=== PATIENT | male | born 1935 | race Caucasian/White ===

== ENCOUNTER 2016-09-26 16:44 | Inpatient (IN) | payer OTHER ==
--- NOTE | 2016-09-26 17:02 | EDPHY ---
H & P Time Seen by Provider: 09/26/16 16:57 HPI/ROS: CHIEF COMPLAINT: Shortness of breath HISTORY OF PRESENT ILLNESS: 81-year-old male with a history of lung cancer, status post partial right lung resection, atrial fibrillation and severe pulmonary hypertension, on 15 L of oxygen at home presents with gradually increasing shortness of breath. 4 days ago he began feeling more short of breath than usual. His Bumex was increased from 1 to 3 mg daily over the past 3 days. Levaquin was started yesterday for possible pneumonia. He is usually on 15 L of oxygen by nasal cannula and his usual oxygen saturation is 91%. He also reports recent 10lb weight gain over the past week which he attributes to pedal edema. He was seen in the clinic this afternoon and sent to the ED for chest x-ray and IV Lasix. REVIEW OF SYSTEMS: Constitutional: +rapid weight gain, no fever, no chills Eyes: No visual changes ENT: No sore throat Respiratory: +shortness of breath, no cough Cardiac: No chest pain Gastrointestinal: No nausea, no vomiting, no abdominal pain Genitourinary: No hematuria, no dysuria Musculoskeletal: +bilateral leg swelling, no leg pain Skin: No rash Neurological: No headache Psychiatric: No depression Past Medical/Surgical History: Interstitial lung disease, severe pulmonary hypertension, pulmonary fibrosis, lung cancer status post-right upper lobe resection, atrial fibrillation, gout, hypertension, hyperlipidemia, CAD with stenting. Social History: at bedside. Smoking Status: Former smoker Physical Exam: General Appearance: Alert, speaks in full sentences, mildly tachypneic Eyes: Pupils equal and round, no conjunctival pallor or injection ENT, Mouth: Mucous membranes moist Neck: Normal inspection Respiratory: Rales at the left base Cardiovascular: Regular rate and rhythm, 2/6 systolic murmur Gastrointestinal: Abdomen is soft and non- tender Neurological: A&O, nonfocal, normal gait Skin: Warm and dry, no rash Extremities: Nontender, 1+ pedal edema Psychiatric: Mood and affect normal Constitutional: Initial Vital Signs Temperature (C) 36.6 C 09/26/16 16:53 Heart Rate 58 L 09/26/16 16:53 Respiratory Rate 18 09/26/16 16:53 Blood Pressure 108/55 L 09/26/16 16:53 O2 Sat (%) 93 09/26/16 16:53 O2 Delivery Mode Non-Rebreather Mask O2 (L/minute) 15 Allergies/Adverse Reactions: amiodarone Allergy (Verified 09/26/16 16:50) MARINARA SAUCE Allergy (Mild, Uncoded 12/09/15 13:40) Vomiting Home Medications: Medication Instructions Recorded Allopurinol [Allopurinol 300 MG 300 mg PO DAILY 02/23/12 (RX)] Sildenafil Citrate [Revatio 20 MG 20 mg PO TID 03/20/13 (*)] Atorvastatin Calcium [Lipitor 20 20 mg PO HS 12/15/14 mg (*)] Omeprazole [Prilosec] 40 mg PO DAILY@1800 12/15/14 Ascorbic Acid [Vitamin C 500 mg 500 mg PO BID 10/01/15 (*)] Bumetanide [Bumex (*)] 2 mg PO DAILY #30 tab 10/07/15 Spironolactone [Aldactone 25 MG 25 mg PO DAILY #30 tab 10/07/15 (*)] Iron/Vit C/Docusate [Allison-Sequels 2 each PO DAILY@1800 12/09/15 65 mg (*)] Metolazone [Zaroxolyn] 2.5 mg PO DAILY 12/09/15 Digoxin 09/26/16 Medical Decision Making - Diagnostics EKG Interpretation: EKG interpreted by me reveals: atrial fibrillation, rate 99; ventricular bigeminy; right axis deviation; nonspecific repol abnormality, diffuse leads. Imaging: Study: X-ray of the chest Indication: Shortness of breath, history of lung cancer and pulmonary fibrosis Results: X-ray of the chest was obtained. The results of the study are: Chronic severe cardiomegaly. Difficult to exclude underlyin ground-glass infiltrate or patchy pulmonary edema. The study was read by the radiologist, Dr. Salvador Segura. I viewed the images myself on the PACS system. ED Course/Re-evaluation: Patient presents with acute worsening of his chronic dyspnea likely secondary to pulmonary edema. Plan for EKG, labs, respiratory therapy, and subsequent admission. The patient is agreeable to this plan. Stat EKG reveals ventricular bigeminy and atrial fibrillation, without evidence of ischemia. Chest x-ray is consistent with pulmonary edema. Lasix 40 mg IV given. 1716: Respiratory therapy at bedside. Labs obtained and are significant for elevated Troponin at 0.051 [place] [address], consistent with pulmonary edema and possible acute coronary syndrome. Patient is clinically stable. The hospitalist service was consulted for admission. Differential Diagnosis: Differential diagnosis includes though it is not limited to pneumonia, pneumothorax, pulmonary embolism, aortic dissection, pericarditis, acute coronary syndrome. - Data Points Laboratory Results: Laboratory Results 09/26/16 17:14 09/26/16 17:14 09/26/16 09/26/16 09/26/16 18:35 18:00 17:14 WBC RBC Hgb Hct MCV MCH MCHC RDW Plt Count MPV Neut % (Auto) Lymph % (Auto) [place] % (Auto) Eos % (Auto) Baso % (Auto) Nucleat RBC Rel Count Absolute Neuts (auto) Absolute Lymphs (auto) Absolute Monos (auto) Absolute Eos (auto) Absolute Basos (auto) Absolute Nucleated RBC Immature Gran % Immature Gran # D-Dimer 1.22 ug/mLFEU H ug/mLFEU REJ (0.00-0.50) Sodium 136 mEq/L mEq/L (134-144) Potassium 4.9 mEq/L mEq/L (3.5-5.2) Chloride 90 mEq/L L mEq/L (97-110) Carbon Dioxide 31 mEq/l mEq/l (22-31) Anion Gap 15 mEq/L mEq/L (8-16) BUN 40 mg/dL H mg/dL (7-23) Creatinine 1.1 mg/dL mg/dL (0.7-1.3) Estimated GFR > 60 Glucose 118 mg/dL H mg/dL (70-100) Calcium 10.3 mg/dL mg/dL (8.5-10.4) Troponin I 0.051 ng/mL H ng/mL (0-0.034) NT-Pro-B Natriuret Pep 23441 pg/mL H pg/mL (0-450) 09/26/16 09/26/16 17:14 17:14 WBC 10.49 10^3/uL H 10^3/uL (3.80-9.50) RBC 4.45 10^6/uL 10^6/uL (4.40-6.38) Hgb 14.9 g/dL g/dL (13.7-17.5) Hct 44.8 % % (40.0-51.0) MCV 100.7 fL H fL (81.5-99.8) MCH 33.5 pg pg (27.9-34.1) MCHC 33.3 g/dL g/dL (32.4-36.7) RDW 19.2 % H % (11.5-15.2) Plt Count 152 10^3/uL 10^3/uL (150-400) MPV 12.1 fL H fL (8.7-11.7) Neut % (Auto) 84.0 % H % (39.3-74.2) Lymph % (Auto) 5.5 % L % (15.0-45.0) [place] % (Auto) 8.4 % % (4.5-13.0) Eos % (Auto) 1.0 % % (0.6-7.6) Baso % (Auto) 0.7 % % (0.3-1.7) Nucleat RBC Rel Count 0.6 % H % (0.0-0.2) Absolute Neuts (auto) 8.82 10^3/uL H 10^3/uL (1.70-6.50) Absolute Lymphs (auto) 0.58 10^3/uL L 10^3/uL (1.00-3.00) Absolute Monos (auto) 0.88 10^3/uL H 10^3/uL (0.30-0.80) Absolute Eos (auto) 0.10 10^3/uL 10^3/uL (0.03-0.40) Absolute Basos (auto) 0.07 10^3/uL 10^3/uL (0.02-0.10) Absolute Nucleated RBC 0.06 10^3/uL H 10^3/uL (0-0.01) Immature Gran % 0.4 % % (0.0-1.1) Immature Gran # 0.04 10^3/uL 10^3/uL (0.00-0.10) D-Dimer REJ Sodium Potassium Chloride Carbon Dioxide Anion Gap BUN Creatinine Estimated GFR Glucose Calcium Troponin I NT-Pro-B Natriuret Pep Medications Given: Discontinued Medications Furosemide (Lasix Injection) 40 mg IVP EDNOW ONE Stop: 02/14/17 17:06 Last Admin: 09/26/16 18:06 Dose: 40 mg Departure - Departure Disposition: [facility] Acute Clinical Impression: Acute exacerbation of congestive heart failure Qualifiers: Congestive heart failure type: systolic Qualified Code(s): I50.23 - Acute on chronic systolic (congestive) heart failure Condition: Fair Report Scribed for: Mary Kirkland Report Scribed by: An Cain Date of Report: 09/26/16 Time of Report: 17:08 Physician Review and Approval Statement: 09/26/16 17:08 Portions of this note were transcribed by a medical social worker. I personally performed a history, physical exam, medical decision making, and confirmed accuracy of information the transcribed note.
[2016-09-26] MEDS ORDERED: FUROSEMIDE 40 MG/4 ML VIAL IVP ONE (17:05)
--- NOTE | 2016-09-26 17:13 | CPEKG ---
Heart Rate: 99 RR Interval: 606 QRSD Interval: 94 QT Interval: 320 QTC Interval: 411 QRS Golf: 113 T Wave Golf: 260 EKG Severity - ABNORMAL ECG - EKG Impression: ATRIAL FIBRILLATION EKG Impression: VENTRICULAR BIGEMINY EKG Impression: RIGHT AXIS DEVIATION EKG Impression: NONSPECIFIC REPOL ABNORMALITY, DIFFUSE LEADS Electronically Signed By: Mary Kirkland 26-Sep-2016 19:43:29
[2016-09-26 17:29] LABS: % IMMATURE GRANULYOCYTES 0.4 % (0.0-1.1); ABSOLUTE IMMATURE GRANULOCYTES 0.04 10^3/uL (0.00-0.10); ABSOLUTE NRBC COUNT 0.06 10^3/uL (0-0.01); ADD DIFF? NO; ADD MORPH? NO; ADD SCAN? NO; ATYPICAL LYMPHOCYTE FLAG 0 (0-99); FRAGMENT RBC FLAG 40 (0-99); HEMATOCRIT 44.8 % (40.0-51.0); HEMOGLOBIN 14.9 g/dL (13.7-17.5); LEFT SHIFT FLG 0 (0-99); LIPEMIA HEMOLYSIS FLAG 80 (0-99); MEAN CELL HEMOGLOBIN 33.5 pg (27.9-34.1); MEAN CELL HEMOGLOBIN CONCENTR. 33.3 g/dL (32.4-36.7); MEAN CELL VOLUME 100.7 fL (81.5-99.8); MEAN PLATELET VOLUME 12.1 fL (8.7-11.7); NRBC-AUTO% 0.6 % (0.0-0.2); PLATELET CLUMPS FLAG 10 (0-99); PLATELET COUNT 152 10^3/uL (150-400); RED BLOOD CELL COUNT 4.45 10^6/uL (4.40-6.38); RED CELL DISTRIBUTION WIDTH 19.2 % (11.5-15.2)
[2016-09-26 17:48] LABS: ANION GAP 15 mEq/L (8-16); CALCIUM 10.3 mg/dL (8.5-10.4); CARBON DIOXIDE 31 mEq/l (22-31); CHLORIDE 90 mEq/L (97-110); CREATININE 1.1 mg/dL (0.7-1.3); GLOMERULAR FILTRATION RATE > 60; GLUCOSE 118 mg/dL (70-100); POTASSIUM 4.9 mEq/L (3.5-5.2); SODIUM 136 mEq/L (134-144)
[2016-09-26 18:00] LABS: TROPONIN I 0.051 ng/mL (0-0.034)
[2016-09-26] MEDS ORDERED: ACETAMINOPHEN 325 MG TAB PO PRN (19:43)
[2016-09-26] MEDS ORDERED: ONDANSETRON DISINTEGRATING 4 MG TAB PO PRN (19:43)
[2016-09-26] MEDS ORDERED: ONDANSETRON 4 MG/2 ML VIAL IVP PRN (19:43)
[2016-09-26] MEDS ORDERED: IOPAMIDOL (ISOVUE 370) 100 ML BTL IV ONE (20:55)
--- NOTE | 2016-09-26 21:26 | GHP ---
[f rep st] HISTORY AND PHYSICAL DATE OF ADMISSION: 09/26/2016 CHIEF COMPLAINT: Shortness of breath. HISTORY OF PRESENT ILLNESS: The patient is a 81-year-old male with a complex medical history including chronic hypoxemic respiratory failure, secondary to end-stage right-sided heart failure, severe pulmonary hypertension, pulmonary fibrosis and a history of lung cancer status post left upper lobe resection, who presents to the emergency department with worsening shortness of breath. He uses home oxygen at baseline of 15-17 L per minute. At times he increases this up to 25 L per minute. He has a high-flow nasal cannula he uses at home. Over the past several days, he has been having increasing dyspnea and his weight has increased from his baseline weight of 137 pounds up to 148 pounds. He endorses mild peripheral edema. He saw his primary care physician, who increased his Bumex from 1 mg daily to 3 mg daily. However, he continues to notice weight gain and worsening shortness of breath including orthopnea and paroxysmal nocturnal dyspnea. He has a mild cough which is not productive. He denies fevers or chills. He denies chest pain. He denies headache, vision changes, abdominal pain, nausea, vomiting or diarrhea. In the emergency department workup revealed an elevated BNP of 23,000. Chest x- ray is suggestive of volume overload with severe cardiomegaly. He was given 40 mg of IV Lasix and is admitted to the hospital for further management. PAST MEDICAL HISTORY: 1. Chronic hypoxemic respiratory failure. 2. Severe pulmonary hypertension. The last echo in [facility] reveals right ventricular systolic pressure of 100. 3. Pulmonary fibrosis, on 15 L of oxygen at baseline. 4. Lung cancer status post right upper lobe resection. 5. Atrial fibrillation. 6. Gout. 7. Hypertension. 8. Hyperlipidemia. 9. Coronary artery disease with prior stent. He had a clean cath in 2010. 10. Obstructive sleep apnea. 11. Chronic hyponatremia. 12. Gastroesophageal reflux disease. 13. History of empyema in the setting of PleurX catheter. SURGICAL HISTORY: He has had right knee surgery. MEDICATIONS: Please see [facility] for complete and updated patient medication list. ALLERGIES: Amiodarone and Marinara sauce. SOCIAL HISTORY: The patient is a former smoker. He quit in 1999. He used to smoke up to 2 packs per day. He denies alcohol or drug use. He lives independently with his who is here at the bedside. FAMILY HISTORY: Both parents are . REVIEW OF SYSTEMS: A 10-point review of systems was performed and is negative except as per HPI. PHYSICAL EXAMINATION: VITAL SIGN: On arrival temperature 36.6, blood pressure 108/55, heart rate 58, respiratory rate 18, he is 93% on 15 L of oxygen by non- rebreather mask. GENERAL: The patient is awake, alert, oriented, no acute distress. HEENT: Head is atraumatic, normocephalic. Pupils equal, round, react to light. Extraocular muscles intact. Oropharynx is clear. Mucous members are moist. NECK: Supple. He has 8 to 10 cm of JVD. HEART: Irregularly irregular without obvious murmur detected. ABDOMEN: Soft, nondistended, nontender. Normoactive bowel sounds. EXTREMITIES: 1+ bilateral lower extremity edema. Extremities otherwise warm and well-perfused. NEUROLOGIC: Grossly nonfocal. EKG in the emergency department reveals atrial fibrillation with ventricular bigeminy. Chest x-ray shows chronic severe cardiomegaly with haziness in the bilateral lung broussard, most likely suggestive of patchy pulmonary edema. There is no focal infiltrate or consolidation. ASSESSMENT AND PLAN: This is a 81-year-old male with a history of severe pulmonary hypertension secondary to pulmonary fibrosis and subsequent chronic hypoxemic respiratory failure, who is admitted to the hospital with acute heart failure exacerbation. 1. Acute on chronic hypoxemic respiratory failure due to acute right heart failure. He also has severe pulmonary hypertension, pulmonary fibrosis and a history of lung cancer status post lobectomy, all contributing to his severe hypoxemia. He has no fevers and appears nontoxic thus I do not suspect an infectious etiology for his acute shortness of breath. He was started on Levaquin yesterday, will hold this for now and monitor. D dimer was elevated, CTPA neg for PE. His weight is up 11 pounds from his baseline weight of 137 pounds and BNP quite elevated. He is given 40 mg of IV Lasix in the ED and will continue with aggressive diuresis, follow his daily weights, I's and O's. I will recheck an echocardiogram as I do not see a recent echo performed. Cardiology is consulted and will see the patient in the morning. His baseline oxygen requirement is 15 L per minute and he frequently requires up to 25 L per minute. We will place him on high-flow nasal cannula and continue supplemental oxygen as needed. 2. Elevated troponin: Mild. We will plan to trend his troponins and repeat an EKG in the morning. I suspect this is strain in the setting of acute heart failure. He is chest pain-free. 3. Severe pulmonary hypertension secondary to pulmonary fibrosis. He is followed by Dr. Martin Steward, [facility] and has also been followed at the [facility]. We will continue his sildenafil and consider pulmonary consult tomorrow. Diuresis as above. 4. History of lung cancer status-post right upper lobe lobectomy. 5. Atrial fibrillation. He is currently rate controlled. He is not anticoagulated for unclear reasons, though he is on a daily aspirin which we will continue. 6. Deep vein thrombosis prophylaxis. Lovenox. 7. Code status. I did discuss code status with the patient. He does not want chest compressions, but would be open to intubation if necessary for a limited period of time. 8. Disposition: Patient admitted to the hospital as inpatient as he will likely require greater than 48 hours hospitalization for ongoing management of his acute hypoxic respiratory failure. /[id number]/MODL MTDD
[2016-09-26] MEDS: FUROSEMIDE 40 MG/4 ML VIAL IVP SCH (23:51)
[2016-09-26] MEDS: ATORVASTATIN CALCIUM 20 MG TAB PO SCH (23:51)
[2016-09-26] MEDS: ASPIRIN 81 MG CHEWABLE TAB PO SCH (23:51)
[2016-09-27] MEDS: SILDENAFIL CITRATE 20 MG TAB PO SCH ×4 (00:01→21:18)
[2016-09-27 05:10] LABS: % IMMATURE GRANULYOCYTES 0.5 % (0.0-1.1); ABSOLUTE IMMATURE GRANULOCYTES 0.04 10^3/uL (0.00-0.10); ABSOLUTE NRBC COUNT 0.04 10^3/uL (0-0.01); ADD DIFF? NO; ADD MORPH? NO; ADD SCAN? NO; ATYPICAL LYMPHOCYTE FLAG 10 (0-99); FRAGMENT RBC FLAG 20 (0-99); HEMATOCRIT 36.6 % (40.0-51.0); HEMOGLOBIN 12.4 g/dL (13.7-17.5); LEFT SHIFT FLG 0 (0-99); LIPEMIA HEMOLYSIS FLAG 90 (0-99); MEAN CELL HEMOGLOBIN 34.4 pg (27.9-34.1); MEAN CELL HEMOGLOBIN CONCENTR. 33.9 g/dL (32.4-36.7); MEAN CELL VOLUME 101.7 fL (81.5-99.8); MEAN PLATELET VOLUME 11.5 fL (8.7-11.7); NRBC-AUTO% 0.5 % (0.0-0.2); PLATELET CLUMPS FLAG 0 (0-99); PLATELET COUNT 110 10^3/uL (150-400); RED CELL DISTRIBUTION WIDTH 18.9 % (11.5-15.2)
[2016-09-27 05:23] LABS: ANION GAP 9 mEq/L (8-16); CALCIUM 9.7 mg/dL (8.5-10.4); CARBON DIOXIDE 29 mEq/l (22-31); CHLORIDE 92 mEq/L (97-110); GLOMERULAR FILTRATION RATE > 60; GLUCOSE 103 mg/dL (70-100); POTASSIUM 4.5 mEq/L (3.5-5.2); SODIUM 130 mEq/L (134-144)
[2016-09-27 05:27] LABS: TROPONIN I 0.059 ng/mL (0-0.034)
[2016-09-27] MEDS: FUROSEMIDE 40 MG/4 ML VIAL IVP SCH ×3 (09:21→21:18)
[2016-09-27] MEDS: DIGOXIN 125 MCG TAB PO SCH (09:22)
[2016-09-27] MEDS: SPIRONOLACTONE 25 MG TAB PO SCH (09:23)
[2016-09-27] MEDS: ENOXAPARIN 40 MG/0.4 ML SYR SC SCH (09:23)
[2016-09-27] MEDS: ALLOPURINOL 300 MG TAB PO SCH (09:23)
--- NOTE | 2016-09-27 09:36 | CPEKG ---
Heart Rate: 96 RR Interval: 625 QRSD Interval: 86 QT Interval: 360 QTC Interval: 455 QRS [place]: 116 T Wave [place]: -71 EKG Severity - ABNORMAL ECG - EKG Impression: ATRIAL FIBRILLATION EKG Impression: VENTRICULAR BIGEMINY EKG Impression: RIGHT AXIS DEVIATION Electronically Signed By: Saad Card 27-Sep-2016 12:17:29
[2016-09-27] MEDS: ASPIRIN 81 MG CHEWABLE TAB PO SCH ×2 (09:41→20:42)
[2016-09-27] MEDS: PANTOPRAZOLE SODIUM 40 MG TAB PO SCH (11:21)
[2016-09-27] MEDS ORDERED: NON-FORMULARY NEW DRUG (Omeprazole [Prilosec] 40 MG) PO SCH (12:00)
--- NOTE | 2016-09-27 13:13 | ECHO ---
[id number] + + [address] : : [place] [address] : : [phone] + Adult Echocardiographic Report + ------+ :Name: TRACIE BRICE Padminiwu Date: 09/27/2016 07:41 AM : : Hospital Admission Number: [id number] Locatio n: 211: :: 1935 Gender: Male Height: 68 in : :Age: 81 yrs Race: WH,White Weight: 146 lb : :Reason For Study: Right heart failure : : BSA: 1.8 meters 2 : + ------+ MMode/2D Measurements \T\ Calculations IVSd: 1.6 cm LVIDd: 4.0 cm FS: 44.3 % MV Diam: 3.3 cm LVPWd: 0.93 cm LVIDs: 2.2 cm EDV(Teich): 70.6 ml ESV(Teich): 16.8 ml EF(Teich): 76.1 % Ao root diam: 3.5 cm LVOT diam: 1.9 cm LA dimension: 5.0 cm LVOT area: 2.9 cm2 Normal Measurement Values: + + :LVIDd (3.5-5.7cm) IVSd (0.6-1.1cm) LVPWd (0.6-1.1cm) Aortic Root (2.0-3.7cm)Left Atrium (1.5-4.0cm): :LV Vol(d) (76-115ml) LV Vol(s) (29-48ml) Ejec Fraction (50-65%)PV Albino (0.6- 1.2m/s) TV Albino (0.4-1.0m/s) : :MV E Albino (0.8-1.0m/s)MV A Albino (0.3-1.0m/s)LVOT Albino (0.7-1.2m/s) Asc Ao Albino ( 0.9-1.8m/s) : + + Doppler Measurements \T\ Calculations MV V2 max: Ao mean PG: LV V1 mean PG: MR max albino: 101.3 cm/sec 6.4 mmHg 0.52 mmHg 497.2 cm/sec MV max P.1 mmHg Ao V2 mean: LV V1 mean: MR max PG: MV V2 mean: 117.7 cm/sec 33.1 cm/sec 98.9 mmHg 47.2 cm/sec Ao V2 VTI: 27.4 cm LV V1 VTI: 8.6 cm MV mean P.2 mmHg MV V2 VTI: 16.8 cm JONNIE(I,D): 0.90 cm2 MV area (1 diam): 8.6 cm2 MVA(VTI): 1.5 cm2 MV Flow area(1diam): 8.6 cm2 MR(RF 1 diam): SV(MV 1 diam): TR max albino: RF(MV,Ao)(1 diam): 10.2 % 144.4 ml 523.4 cm/sec -0.84 SI(MV 1 diam): TR max PG: RF(MV,LVOT) 109.6 mmHg (1diam): 0.83 80.7 ml/m2 RAP systole: SV(LVOT): 24.7 ml 20.0 mmHg RVSP(TR): 129.6 mmHg Left Ventricle The left ventricle is smallin size. Ejection Fraction = 60%. Flattened septum is consistent with RV pressure/volume overload. Right Ventricle The right ventricle is severely dilated. Atria The left atrial size is normal. The right atrium is severely dilated. Mitral Valve There is mild mitral annular calcification. There is moderate mitral regurgitation. Tricuspid Valve Normal tricuspid valve. There is torrential tricuspid regurgitation. RVSP is 131 mmHG (with abnormal rhythm). There is Doppler evidence for severe pulmonary hypertension. Aortic Valve The aortic valve is trileaflet. There is partial fusion of the R and L cusps. There is no aortic stenosis. Mild aortic regurgitation. Pulmonic Valve The pulmonic valve is normal in structure and function. Mild pulmonic valvular regurgitation. Great Vessels The aortic root is normal size. Pericardium/Pleural There is no pericardial effusion. There is a fat pad seen. Conclusion A complete two-dimensional transthoracic echocardiogram was performed (2D, M-mode, Doppler and color flow Doppler). 1. The left ventricle is smallin size. The Ejection Fraction = 60%. Flattened septum is consistent with RV pressure/volume overload. 2. The right ventricle is severely dilated. There is Doppler evidence for severe pulmonary hypertension. RVSP is 131 mmHG (with abnormal rhythm). 3. The right atrium is severely dilated. 4. There is mild mitral annular calcification. There is moderate mitral regurgitation. 5. The aortic valve is trileaflet. There is partial fusion of the R and L cusps. There is no significant aortic stenosis by doppler. There is mild aortic regurgitation. 6. When compared to the 12/09/15 study. The pulmonary artery pressure has increased from 100 mmHg to 131 mmHg. Final Reading Physician: Shorty Leblanc MD electronically signed on 09/27/2016 01:11 PM Performed By: Yenifer Wagner RDCS
--- NOTE | 2016-09-27 17:35 | HOSPPROG ---
Hospitalist Progress Note Assessment/Plan: DIAGNOSIS: # Acute hypoxemic respiratory failure # Severe end-stage right heart failure with pulmonary pressure is 130 # Severe fibrotic lung disease chronic I have discussed the patient's case in great detail with doctors Martin Steward and Shorty Leblanc both of whom know him very well. At this point it appears that worsening pulmonary pressures and right heart failure are the main issue although he has surprisingly little edema with this. His pulmonary pressures are actually higher than his systolic arterial pressure at this point. The patient probably has decreased cardiac output based on this leading to his symptoms and presentation. There really is likely little that can be offered. He is already on Viagra and there are not likely be other medicines that we can directed is pulmonary hypertension. He is old enough that he is beyond the category of candidacy for heart lung transplant which would be the most effective therapy for him. He does not have enough fluid that will likely make much progress with diuresis. His pleural effusion at this point is a small loculated area and not likely at this point to be amenable to drainage in a way that would help him with his symptoms. Dr. Steward will see the patient and offer any recommendations he can come up with. PLANS: - Continue current therapy with high-flow oxygen, diuretics, and pulmonary therapies and Viagra -Doctors Bin and Benji will visit the patient and await their recommendations SUBJECTIVE: no improvement in shortness of breath or oxygen needs so far OBJECTIVE Vitals reviewed: respirations 18 per minute, no tachycardia, using oxygen at 25 liters/minute by high-flow mechanism Exam: alert oriented skin warm dry color ok resps not labored lungs clear BSs heart regular abd soft nondistended nontender, bowel sounds present limbs warm, no edema iv site ok Echocardiogram done today along its other abnormalities primarily shows pulmonary pressures elevated at 130 I have reviewed the patient's chest x-ray and CT from yesterday which show his chronic fibrotic lung disease, a persisting pocket of right pleural effusion that is loculated against the mediastinum but no other effusion, no acute infiltrates. Objective: Vital Signs Temp Pulse Resp BP Pulse Ox 36.7 C 87 18 115/48 L 90 L 09/27/16 15:57 09/27/16 15:57 09/27/16 15:57 09/27/16 15:57 09/27/16 15:57 Laboratory Results 09/27/16 04:25 09/27/16 04:25 09/26/16 09/27/16 09/28/16 06:59 06:59 06:59 Intake Total 200 240 Output Total 375 675 Balance -175 -435 ICD10 Worksheet Patient Problems: Problems Problem Status Onset Acute exacerbation of congestive heart failure Acute Congestive cardiomyopathy Active Atrial fibrillation Acute Chronic Disease Mgmt/Transitional Care Acute Congestive heart failure Acute Fluid overload Acute Hyponatremia Acute Hypoxia Acute MRSA (methicillin resistant staph aureus) culture positive Acute 10/02/15 Pulmonary HTN Acute Renal insufficiency Acute Respiratory distress, acute Acute
[2016-09-27] MEDS: FERRO-SEQUELS 65 MG TAB.ER PO SCH (17:46)
[2016-09-27] MEDS: ATORVASTATIN CALCIUM 20 MG TAB PO SCH (20:40)
[2016-09-28] MEDS: ENOXAPARIN 40 MG/0.4 ML SYR SC SCH (09:19)
[2016-09-28] MEDS: FUROSEMIDE 40 MG/4 ML VIAL IVP SCH ×2 (09:20→16:14)
[2016-09-28] MEDS: ALLOPURINOL 300 MG TAB PO SCH (09:21)
[2016-09-28] MEDS: SILDENAFIL CITRATE 20 MG TAB PO SCH ×3 (09:21→21:30)
[2016-09-28] MEDS: SPIRONOLACTONE 25 MG TAB PO SCH (09:21)
[2016-09-28] MEDS: DIGOXIN 125 MCG TAB PO SCH (11:05)
[2016-09-28] MEDS: PANTOPRAZOLE SODIUM 40 MG TAB PO SCH (12:28)
--- NOTE | 2016-09-28 15:47 | GCON ---
[f rep st] CONSULTATION CHEST CONSULTATION. Mr. Glasgow is a very pleasant 81-year-old white male, well known to me, with an extensive past medica l history including very severe pulmonary hypertension with right ventricular systolic pressures ean roximating 100. He also has a history of pulmonary fibrosis and lung cancer with a right upper lobe ctomy, coronary artery disease, hypertension, atrial fibrillation, cor pulmonale, obstructive sleep apnea. He presents with worsening breathlessness. He was admitted on September 26 for increasing br eathlessness as well as weight gain of approximately 11 pounds. He was seen in the emergency room a nd subsequently admitted to PCU. Currently, he feels somewhat better; however, his oxygen requireme nts are still high. He is on 35 L of Vapotherm at this time. PAST MEDICAL HISTORY: Again, significant for chronic respiratory failure with high oxygen requireme nts, pulmonary fibrosis, atrial fibrillation, hypertension, coronary artery disease with a history o f a stent, chronic hyponatremia, previous PleurX catheter for empyema, severe pulmonary hypertension , lung cancer with a right upper lobectomy, gout, hyperlipidemia, obstructive sleep apnea, and gastr oesophageal reflux disease. ALLERGIES: To amiodarone. SOCIAL HISTORY: Previous heavy smoker, quit 17 years ago. No significant alcohol use. He lives at home with his . Has good family support. He has been followed recently by Dr. Salvador Saenz a [facility]. PHYSICAL EXAM: VITAL SIGNS: Blood pressure is 105/83, pulse is 63, respirations 29, temperature 36 .6, oxygen saturation 98% on 30% high-flow oxygen. Weight is down from 65 kg to 64.6 kg. GENERAL: He is a well-developed, elderly white male who is resting comfortably on high-flow oxygen. HEENT: Eyes are CHERIE, EOMI. Throat shows no erythema or tonsillar hypertrophy. NECK: Supple. There is no cervical adenopathy. HEART: Regular rate and rhythm with a 3/6 systolic murmur at left sternal border without radiation. He has loud P2 component. LUNGS: Show diminished breath sounds and mild prolongation of expiratory phase. There are bilateral Velcro-like crackles. ABDOMEN: Soft, nonte nder. Bowel sounds present in all 4 quadrants. EXTREMITIES: No clubbing, cyanosis, but 2+ lower e xtremity edema. LABORATORIES: White count is 8.6, hemoglobin 12, hematocrit 36, platelet count is 110. Sodium 130, potassium 4.5, chloride 92, CO2 is 29. BUN 40, creatinine 1.0, glucose is 103. BNP is 23,300. Di goxin level is 1.6. CT angiogram of the chest shows no PE, cardiomegaly, small pulmonary nodules. Echocardiogram shows normal ejection fraction, severely dilated right ventricle, right ventricular s ystolic pressures of approximately 130 mmHg. IMPRESSION: 1. Severe chronic hypoxemia. 2. Severe pulmonary artery pressure with pressures approaching systemic pressures. 3. Pulmonary fibrosis. 4. History of lung cancer with a right upper lobectomy. 5. Severe cor pulmonale. 6. Coronary artery disease. 7. Obstructive sleep apnea. 8. Atrial fibrillation. RECOMMENDATIONS: 1. Agree with aggressive diuresis as you are doing. 2. Wean off oxygen as tolerated. However, please note he is at baseline 15 L of oxygen at home. 3. Continue his home medications, in particularly, his sildenafil. 4. DVT and PE prophylaxis. 5. Stress ulcer prophylaxis. 6. PT and OT with ambulation. /[id number]/MODL
--- NOTE | 2016-09-28 17:49 | HOSPPROG ---
Hospitalist Progress Note Assessment/Plan: DIAGNOSIS: # Acute hypoxemic respiratory failure # Severe end-stage right heart failure with pulmonary pressure 130 # Severe fibrotic lung disease chronic The patient has had modest improvement so far but nonetheless some improvement. For now will continue with diuresis and Vapotherm therapy. If we can continue to diurese him we may consider trying to change back to wall oxygen with an OxyMask. I have reviewed the patient's case in detail today with Dr. Shorty Leblanc and Martin Steward PLANS: -Continue current therapy with high-flow oxygen, diuretics, and pulmonary therapies and Viagra -Doctors Bin and Benji will visit the patient and await their recommendations -Will recheck serum chemistry tomorrow with his ongoing diuresis SUBJECTIVE: minor improvement in shortness of breath no other discomforts or bothersome symptoms He is receiving oxygen by Vapotherm at 95%, 30 liters/minute OBJECTIVE Vitals reviewed: respirations 18 per minute, no tachycardia, using oxygen at 25 liters/minute by high-flow mechanism I&O: modest diuresis so far here property assessment monitor: Sinus rhythm on my review Exam: alert oriented skin warm dry color ok resps not labored lungs clear BSs heart regular abd soft nondistended nontender, bowel sounds present limbs warm, no edema iv site ok Objective: Vital Signs Temp Pulse Resp BP Pulse Ox 36.4 C 78 21 H 116/56 L 95 09/28/16 15:45 09/28/16 15:45 09/28/16 15:45 09/28/16 15:45 09/28/16 15:45 Laboratory Results 09/27/16 04:25 09/27/16 04:25 09/27/16 09/28/16 09/29/16 06:59 06:59 06:59 Intake Total 200 1090 120 Output Total 375 1325 250 Balance -175 -235 -130 ICD10 Worksheet Patient Problems: Problems Problem Status Onset Acute exacerbation of congestive heart failure Acute Congestive cardiomyopathy Active Atrial fibrillation Acute Chronic Disease Mgmt/Transitional Care Acute Congestive heart failure Acute Fluid overload Acute Hyponatremia Acute Hypoxia Acute MRSA (methicillin resistant staph aureus) culture positive Acute 10/02/15 Pulmonary HTN Acute Renal insufficiency Acute Respiratory distress, acute Acute
[2016-09-28] MEDS: FERRO-SEQUELS 65 MG TAB.ER PO SCH (18:08)
[2016-09-28] MEDS: ATORVASTATIN CALCIUM 20 MG TAB PO SCH (21:30)
[2016-09-28] MEDS: FUROSEMIDE 100 MG/10 ML VIAL IVP SCH (21:30)
[2016-09-28] MEDS: ASPIRIN 81 MG CHEWABLE TAB PO SCH (21:30)
--- NOTE | 2016-09-28 22:59 | GCON ---
[f rep st] CONSULTATION DATE OF CONSULTATION: 09/28/2016 CHIEF COMPLAINT: We have been asked by Dr. Valiente to evaluate the patient with right-sided heart fa ilure. HISTORY OF PRESENT ILLNESS: The patient is a 81-year-old gentleman with chronic lung disease as wel l as pulmonary hypertension who was admitted on 09/26/2016 with symptoms of increased dyspnea on exe rtion. The patient was in his usual state of health until approximately 2-3 days prior to admission , when he noted a 5-pound weight gain. This was associated with symptoms of increased dyspnea on ex ertion and an increase in his O2 requirements. The patient typically requires anywhere from 15-17 L /minute via nasal cannula in order to maintain a saturation above 90%. At the time of admission, david de la cruz was requiring 25 L/minute to maintain a saturation greater than 90%. On admission, he had a B MARINE EQUIPMENT TEST ENGINEER performed which was elevated at 23,000. He also had a chest x-ray performed that was suggestive of volume overload with cardiomegaly. The patient was started on diuretic therapy and scheduled for an echocardiogram to further evaluate his condition. The echocardiogram demonstrated preserved lef t ventricular systolic function with moderate mitral regurgitation and mild aortic insufficiency. T he patient was noted to have severe pulmonary hypertension with PA systolic pressures up to 131 mmHg . Since admission, the patient has noted some mild improvement in his symptoms of dyspnea. He cont inues to have mild lower extremity edema and continues to be approximately 2-4 pounds above his base line weight. PAST MEDICAL HISTORY: 1. Lung cancer status post left upper lobe lung resection. 2. Pulmonary fibrosis. 3. Severe pulmonary hypertension with PA systolic pressures greater than 100 mmHg. 4. Chronic atrial fibrillation. 5. Hypertension. 6. Hyperlipidemia. 7. Coronary artery disease status post previous percutaneous coronary intervention. 8. Gastroesophageal reflux disease. MEDICATIONS: Please see medicine reconciliation form. ALLERGIES: 1. Amiodarone. 2. Marinara sauce. SOCIAL HISTORY: Patient is a former smoker. He quit smoking in 1999. He denies illicit drug or al cohol use. He lives independently with his . FAMILY HISTORY: Noncontributory. REVIEW OF SYSTEMS: A 10-point review of systems is negative except as noted in HPI. PHYSICAL EXAMINATION: GENERAL: Patient is sitting in bed. He is able to speak in partial sentence s. He appears to have mild to moderate respiratory distress but is very pleasant. VITAL SIGNS: Te davidture is afebrile, pulse is 78, blood pressure 116/56, SaO2 95% on high-flow nasal cannula. NEC K: Positive JVD. LUNGS: Diminished breath sounds on the left. Coarse bronchial breath sounds on the right. CARDIOVASCULAR: Regular rate and rhythm. S1, S2. Grade 2/6 systolic ejection murmur i s noted at the left sternal border. ABDOMEN: Distended, nontender. Normoactive bowel sounds. EXT REMITIES: Mild bilateral lower extremity edema. NEURO: Patient is awake, alert, and oriented x3. LABORATORY: White blood cell count is 8.61, hemoglobin 12.4, hematocrit 36.6, platelet count is 110 . Sodium 130, potassium 4.5, chloride 92, BUN 40, creatinine 1.0. Troponin 0.051, 0.045, 0.059. B MARINE EQUIPMENT TEST ENGINEER is 23,300. Digoxin level is 1.6. ASSESSMENT AND PLAN: The patient is a 81-year-old gentleman with 1. Dyspnea. The patient presents with a several-day history of increased dyspnea on exertion as we ll as a significant increase in his O2 requirement. His echocardiogram demonstrates preserved left ventricular systolic function with moderate mitral regurgitation as well as severe pulmonary hyperte nsion with PA systolic pressures into the 131 mmHg range. Suspect his dyspnea on exertion is likely related to progressive lung disease as opposed to congestive heart failure. Would recommend pulmon shan consultation to help in the further management of this patient. 2. Right-sided heart failure. The patient has a long history of cor pulmonale secondary to severe pulmonary hypertension. He does note a 5-pound weight gain as well as lower extremity edema consist ent with progressive right heart failure. Agree with advanced diuretic therapy with a goal loss of 5 pounds over the next 2 days. We will have to be careful with diuresis given severe pulmonary hype rtension and risk of systemic hypotension. 3. Atrial fibrillation. Patient has a history of chronic atrial fibrillation. He is managed with a rate control and anticoagulation strategy. His digoxin level is within acceptable range. Would p maame on continuing current therapy. Patient is currently not on anticoagulation secondary to bleedin g risk. This has been documented previously with Dr. Ramirez. 4. Coronary artery disease. Patient does have a previous history of coronary artery disease. He i s status post percutaneous coronary intervention. His last angiogram demonstrated no flow-limiting disease in 2010. Patient currently denies symptoms of angina. His troponin is mildly elevated, how ever, is consistent with his previous heart failure admissions. Do not suspect acute coronary syndr ome. Will plan on continuing medical management. /[id number]/MODL
[2016-09-29 04:55] LABS: ANION GAP 9 mEq/L (8-16); CALCIUM 9.3 mg/dL (8.5-10.4); CARBON DIOXIDE 28 mEq/l (22-31); CHLORIDE 95 mEq/L (97-110); CREATININE 1.4 mg/dL (0.7-1.3); GLOMERULAR FILTRATION RATE 49; GLUCOSE 87 mg/dL (70-100); POTASSIUM 4.6 mEq/L (3.5-5.2); SODIUM 132 mEq/L (134-144)
[2016-09-29] MEDS: FUROSEMIDE 100 MG/10 ML VIAL IVP SCH (06:12)
[2016-09-29] MEDS: ENOXAPARIN 40 MG/0.4 ML SYR SC SCH (09:03)
[2016-09-29] MEDS: DIGOXIN 125 MCG TAB PO SCH (09:05)
[2016-09-29] MEDS: SILDENAFIL CITRATE 20 MG TAB PO SCH ×3 (09:05→21:08)
[2016-09-29] MEDS: ALLOPURINOL 300 MG TAB PO SCH (09:05)
[2016-09-29] MEDS: SPIRONOLACTONE 25 MG TAB PO SCH (09:05)
[2016-09-29] MEDS: PANTOPRAZOLE SODIUM 40 MG TAB PO SCH (11:21)
[2016-09-29] MEDS ORDERED: FUROSEMIDE 80 MG in D5W 50 ML IV SCH (14:00)
--- NOTE | 2016-09-29 17:24 | PDCARPN ---
Cardiology Progress Note Chief Complaint: SOB Assessment/Plan: Assessment: Pt is a 81 y/o M with a history of lung cancer s/p lobectomy, severe PHTN with pressures of 130, and stable CAD admitted with SOB and 5 pound weight gain. EF is normal. This appears to be RHF. Lasix increased to 80mg IV TID and creatinine has bumped to 1.4. Plan: 1. RHF with SOB and 5 pound weight gain. Will decrease Lasix to 40mg IV TID secondary to creatinine bump. Continue to monitor. 2. hypoxia- will need to see how he can be d/c home with appropriate home oxygen. 09/29/16 17:41 Subjective: He denies any CP. His SOB appears to be stable but it is hard for him to tell because he has been sedentary. Objective: Vital Signs (8 Hrs) Temp Pulse Resp BP Pulse Ox 09/29/16 16:21 36.3 C 79 20 102/67 91 L 09/29/16 12:10 36.7 C 72 20 109/42 L 96 Intake/Output (24 Hrs) 09/28/16 09/29/16 09/30/16 05:59 05:59 05:59 Intake Total 1090 420 660 Output Total 1325 680 825 Balance -235 -260 -165 Intake: Oral (ml) 1080 420 660 IV Intake (ml) 10 Output: Urine (ml) 1325 680 825 Urinal 1325 680 825 Other: Weight 64.9 kg Intake Quantity Yes Sufficient Number of Voids Urinal 2 1 1 Number of Stools Urinal 1 tele NSR with PVC's in bigeminy and ventricular couplets Result Diagrams: 09/27/16 04:25 09/29/16 04:09 Cardiac Labs: Cardiac Lab Results (72 Hrs) 09/27/16 09/27/16 04:25 00:10 Troponin I 0.059 H 0.045 H - Physical Exam Cardiovascular: no rubs, no gallops, systolic murmur, other (irregular rhythm consistent with PVC's in bigeminy) Peripheral Pulses: 2+: dorsalis-pedis (R), dorsalis-pedis (L) Respiratory: clear to auscultate bilat, no crackles, no wheezes Skin: no edema Neurologic: AAOx3 ICD10 Worksheet Patient Problems: Problems Problem Status Onset Acute exacerbation of congestive heart failure Acute Congestive cardiomyopathy Active Atrial fibrillation Acute Chronic Disease Mgmt/Transitional Care Acute Congestive heart failure Acute Fluid overload Acute Hyponatremia Acute Hypoxia Acute MRSA (methicillin resistant staph aureus) culture positive Acute 10/02/15 Pulmonary HTN Acute Renal insufficiency Acute Respiratory distress, acute Acute
[2016-09-29] MEDS: FERRO-SEQUELS 65 MG TAB.ER PO SCH (17:52)
--- NOTE | 2016-09-29 18:12 | HOSPPROG ---
Hospitalist Progress Note Assessment/Plan: DIAGNOSIS: # Acute hypoxemic respiratory failure # Severe end-stage right heart failure with pulmonary pressure 130 # Severe fibrotic lung disease chronic # Sleep apnea ; some of his home symptoms suggest that ineffective treatment with CPAP at home could potentially be aggravating his other pulmonary issues He continues to diurese so far and this is leaving him feeling a bit less dyspnea. Today we have been able to turn off the Vapotherm and use Oxy mask along with nasal cannula simultaneously and he is getting reasonable oxygenation and is not any more dyspneic. We have been able to determine that he can get oxygen at 21 L using Oxy mask and nasal cannula at home, and we have contacted his home oxygen service, apnea, and they will be able to supply this for him with the proper equipment when we are ready to discharge him. Today with diuresis his creatinine has gone from 1 to 1.4. I am concerned that we may be near a anita in terms of perfusion pressures and will have to proceed very cautiously with further diuresis. Will cut back on his diuresis at this point and will need to follow his renal function and blood pressures and symptoms closely. We may not be able to get much more fluid out. In addition today the patient tells me that he has been sleeping very restlessly at home, and has been waking feeling very poorly rested. I wonder if his CPAP setup at this time is not providing adequate care for his sleep apnea, and whether this may be part of what has increased his pulmonary pressures further. I have recommended that he visit with his sleep medicine practitioners to review his CPAP treatment to see if there might be any modifications this to improve his sleep apnea therapy. I have reviewed the patient's case in detail today with Dr. Shorty Leblanc PLANS: -Continue current therapy with high-flow oxygen, diuretics, and pulmonary therapies and Viagra -Continue use of Oxy mask and nasal cannula together for now -decrease Lasix dose and follow vitals and renal function very closely - likely discharged home soon, current plan is that we might send him home with 21 L of oxygen through [facility] using Oxy mask and nasal cannula - He will visit his outpatient sleep apnea providers to really assess his sleep apnea care with CPAP to see if there is any room for improvement their SUBJECTIVE: We have switched to Oxy mask today and so far he is tolerating that reasonably well. OBJECTIVE Vitals reviewed: Overall stable I&O: continued diuresis of moderate amounts presto log operator: Sinus rhythm on my review Exam: alert oriented skin warm dry color ok resps not labored lungs clear BSs heart regular abd soft nondistended nontender, bowel sounds present limbs warm, no edema iv site ok Objective: Vital Signs Temp Pulse Resp BP Pulse Ox 36.3 C 79 20 102/67 91 L 09/29/16 16:21 09/29/16 16:21 09/29/16 16:21 09/29/16 16:21 09/29/16 16:21 Laboratory Results 09/27/16 04:25 09/29/16 04:09 09/28/16 09/29/16 09/30/16 06:59 06:59 06:59 Intake Total 1090 420 760 Output Total 1325 680 925 Balance -235 -260 -165 ICD10 Worksheet Patient Problems: Problems Problem Status Onset Acute exacerbation of congestive heart failure Acute Congestive cardiomyopathy Active Atrial fibrillation Acute Chronic Disease Mgmt/Transitional Care Acute Congestive heart failure Acute Fluid overload Acute Hyponatremia Acute Hypoxia Acute MRSA (methicillin resistant staph aureus) culture positive Acute 10/02/15 Pulmonary HTN Acute Renal insufficiency Acute Respiratory distress, acute Acute
[2016-09-29] MEDS: FUROSEMIDE 40 MG/4 ML VIAL IVP SCH ×2 (19:59→21:08)
[2016-09-29] MEDS: ATORVASTATIN CALCIUM 20 MG TAB PO SCH (21:08)
[2016-09-29] MEDS: ASPIRIN 81 MG CHEWABLE TAB PO SCH (21:08)
[2016-09-30 05:14] LABS: ANION GAP 9 mEq/L (8-16); CALCIUM 9.4 mg/dL (8.5-10.4); CARBON DIOXIDE 26 mEq/l (22-31); CHLORIDE 95 mEq/L (97-110); CREATININE 1.5 mg/dL (0.7-1.3); GLOMERULAR FILTRATION RATE 45; GLUCOSE 83 mg/dL (70-100); POTASSIUM 4.6 mEq/L (3.5-5.2); SODIUM 130 mEq/L (134-144)
[2016-09-30] MEDS: FUROSEMIDE 40 MG/4 ML VIAL IVP SCH (06:32)
[2016-09-30] MEDS: SPIRONOLACTONE 25 MG TAB PO SCH (10:10)
[2016-09-30] MEDS: SILDENAFIL CITRATE 20 MG TAB PO SCH ×3 (10:10→21:45)
[2016-09-30] MEDS: ALLOPURINOL 300 MG TAB PO SCH (10:10)
[2016-09-30] MEDS: DIGOXIN 125 MCG TAB PO SCH (10:10)
[2016-09-30] MEDS: ENOXAPARIN 40 MG/0.4 ML SYR SC SCH (10:18)
--- NOTE | 2016-09-30 12:01 | SOAPPROG ---
SOAP Progress Note Assessment/Plan: Assessment: 1. Chronic respiratory insufficiency 2. Pulmonary fibrosis 3. Pulmonary hypertension 5. Pulmonary artery pressure greater than 131 4. Chronic atrial fibrillation 6. Hypertension 7. Hyperlipidemia 9. Coronary artery disease 10. History of lung cancer 11. Status post lobectomy 12. Fatigue Today's quite discouraged. However he does feel better than he did in the last few days. He would like to lose more weight but as we give him increasing diuretics his BUN and creatinine go up. I do not think he is significantly fluid overloaded right now. I do not want to put him into renal failure for the sake of chest trying to get another lb or 2 off of him. He has some peripheral swelling but is not a significant amount at this time. I think it is his chronic respiratory failure which is causing most of his trouble. He is being followed carefully by the Pulmonary service as well. He has been cared for at the [facility] as Pulmonary hypertension Clinic and we have reviewed his visit from last December both at [facility] in the transfer to the [place] and then also a repeat admission down at the [place] in the fall. He is often taking 16 L of oxygen to have a good oxygen saturation and that 16 L when he is at rest. He himself feels like he is improving does not feel like he is dying. He was born in [place] grew up there and then went to school in [employer]. 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 He has a potentially after time in [place] back at [employer] coming to the work for you as [employer] for 15 years and he has been retired since 2001. 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 So he has had a very active and full life. He has 2 very healthy kids and I spent a good deal of time with him today and also with his when she came in. He feels like he is doing okay and also holding his own. I would not increase his diuresis any at this point time. I would watch him very closely. His prognosis has to be guarded and he is quite aware of that. All his questions have been answered. I think it would be wonderful sooner we can get him home the better he may be able in February sometimes there. He is obviously very ill. He is an excellent candidate for hospice but that would be a tricky thing to bring up with him. The people who know him better could consider discussing that. Selected Entries 09/29/16 09/30/16 09/30/16 22:50 04:00 08:00 Heart Rate 74 97 73 Respiratory 20 20 16 Rate O2 Sat (%) 97 97 98 Temperature (C) 36.6 C Blood Pressure 119/66 112/57 L 138/63 H O2 (L/minute) 16 O2 Delivery Oxymask Mode Laboratory Tests 09/26/16 09/27/16 09/27/16 17:14 00:10 04:25 BUN 40 H Creatinine 1.1 Glucose 118 H Troponin I 0.051 H 0.045 H 0.059 H NT-Pro-B Natriuret Pep 31397 H 09/29/16 09/30/16 04:09 05:00 BUN 45 H 48 H Creatinine 1.4 H 1.5 H Glucose Troponin I NT-Pro-B Natriuret Pep Plan: 09/30/16 12:01 Subjective: Has ongoing shortness breath. has no pain in the chest or in the jaw. He has no pleuritic chest pain. He has no chest tightness. He is very weak. Is hard for him to get up out of bed. He has not really moving it much at all. He is often dyspneic at rest. He is taking his medications. He has no nausea vomiting He is not lightheaded or dizzy. He does not complain of any other new neurologic complaints. He is having no palpitations. Objective: Vital Signs Temp Pulse Resp BP Pulse Ox 36.6 C 78 16 138/63 H 98 09/30/16 08:00 09/30/16 10:10 09/30/16 08:00 09/30/16 08:00 09/30/16 08:00 Laboratory Results 09/27/16 04:25 09/30/16 05:00 09/29/16 09/30/16 10/01/16 05:59 05:59 05:59 Intake Total 420 910 Output Total 680 1105 350 Balance -260 -195 -350 Physical Exam - Physical Exam General Appearance: alert, moderate distress Respiratory: rhonchi, wheezing, prolonged expiration, No stridor Cardiac/Chest: regular rate, rhythm, JVD Abdomen: non-tender, soft, No organomegaly Skin: pallor, No jaundice Extremities: non-tender, swelling Neuro/Psych: alert, normal mood/affect ICD10 Worksheet Patient Problems: Problems Problem Status Onset Acute exacerbation of congestive heart failure Acute Congestive cardiomyopathy Active Atrial fibrillation Acute Chronic Disease Mgmt/Transitional Care Acute Congestive heart failure Acute Fluid overload Acute Hyponatremia Acute Hypoxia Acute MRSA (methicillin resistant staph aureus) culture positive Acute 10/02/15 Pulmonary HTN Acute Renal insufficiency Acute Respiratory distress, acute Acute
--- NOTE | 2016-09-30 12:25 | HOSPPROG ---
Hospitalist Progress Note Assessment/Plan: # Acute / chronic hypoxemic respiratory failure - baseline O2 requirement ~21- 25 LPM, he is on 21 LPM here. Will go home with oxymask and NC through [facility] to maintain high O2 requirement # Severe end-stage right heart failure with pulmonary pressure 130 in setting of severe fibrotic lung disease - I suspect his symptoms are more likely due to his lung disease. Despite aggressive diuresis, no significant change in respiratory status and now with rising Cr. -continue lower dose diuretic therapy -continue Sildenafil -outpt Pulm f/u at [place] pulmonary hypertension clinic # FERNANDA - Cr up to 1.5 from 1.0 with aggressive diuresis. -hold further IV Lasix today, resume oral Lasix tomorrow. # Hyponatremia - chronic, near or above baseline. Follow. # Sleep apnea ; some of his home symptoms suggest that ineffective treatment with CPAP at home could potentially be aggravating his other pulmonary issues # Dispo - likely home in 1-2 days Subjective: Pt feels about the same, no significant change in O2 requirement or symptoms. No fevers/chills. Objective: Vital Signs Temp Pulse Resp BP Pulse Ox 36.7 C 67 18 102/52 L 98 09/30/16 12:00 09/30/16 12:00 09/30/16 12:00 09/30/16 12:00 09/30/16 12:00 Laboratory Results 09/27/16 04:25 09/30/16 05:00 09/29/16 09/30/16 10/01/16 05:59 05:59 05:59 Intake Total 420 910 Output Total 680 1105 350 Balance -260 -195 -350 - Physical Exam Constitutional: no apparent distress Eyes: PERRL Ears, Nose, Mouth, Throat: moist mucous membranes Cardiovascular: regular rate and rhythym Respiratory: no respiratory distress Gastrointestinal: normoactive bowel sounds, soft, non-tender abdomen Skin: warm Musculoskeletal: full muscle strength Neurologic: AAOx3 Psychiatric: interacting appropriately ICD10 Worksheet Patient Problems: Problems Problem Status Onset Acute exacerbation of congestive heart failure Acute Congestive cardiomyopathy Active Atrial fibrillation Acute Chronic Disease Mgmt/Transitional Care Acute Congestive heart failure Acute Fluid overload Acute Hyponatremia Acute Hypoxia Acute MRSA (methicillin resistant staph aureus) culture positive Acute 10/02/15 Pulmonary HTN Acute Renal insufficiency Acute Respiratory distress, acute Acute
[2016-09-30] MEDS: PANTOPRAZOLE SODIUM 40 MG TAB PO SCH (12:53)
[2016-09-30] MEDS: FERRO-SEQUELS 65 MG TAB.ER PO SCH (17:35)
[2016-09-30] MEDS: ASPIRIN 81 MG CHEWABLE TAB PO SCH (21:46)
[2016-09-30] MEDS: ATORVASTATIN CALCIUM 20 MG TAB PO SCH (21:46)
[2016-10-01 05:40] LABS: ANION GAP 10 mEq/L (8-16); CALCIUM 9.1 mg/dL (8.5-10.4); CARBON DIOXIDE 26 mEq/l (22-31); CHLORIDE 96 mEq/L (97-110); CREATININE 1.2 mg/dL (0.7-1.3); GLOMERULAR FILTRATION RATE 58; GLUCOSE 74 mg/dL (70-100); POTASSIUM 4.6 mEq/L (3.5-5.2); SODIUM 132 mEq/L (134-144)
[2016-10-01 07:31] VITALS: O2SAT 97
[2016-10-01] MEDS: DIGOXIN 125 MCG TAB PO SCH (09:11)
[2016-10-01] MEDS: FUROSEMIDE 40 MG TAB PO SCH ×2 (09:11→15:41)
[2016-10-01] MEDS: SILDENAFIL CITRATE 20 MG TAB PO SCH ×2 (09:12→15:41)
[2016-10-01] MEDS: ALLOPURINOL 300 MG TAB PO SCH (09:12)
[2016-10-01] MEDS: SPIRONOLACTONE 25 MG TAB PO SCH (09:12)
[2016-10-01] MEDS: ENOXAPARIN 40 MG/0.4 ML SYR SC SCH (09:15)
--- NOTE | 2016-10-01 10:16 | SOAPPROG ---
SOAP Progress Note Assessment/Plan: Assessment: 1. Chronic respiratory insufficiency 2. Pulmonary fibrosis 3. Pulmonary hypertension 5. Pulmonary artery pressure greater than 131 4. Chronic atrial fibrillation 6. Hypertension 7. Hyperlipidemia 9. Coronary artery disease 10. History of lung cancer 11. Status post lobectomy 12. Fatigue 10/01/2016Sunday HE FEELS BETTER TODAY AND WANTS TO GO HOME. I am very concerned about him going home without more support. I think that his chances of being readmitted in a very short. Time are incredibly high. He obviously has quite unrealistic concept of how things are going and how his disease is progressing progressing. I have spoken to him for 45 minutes with his present and the hospitalist also joined us. I really believe he needs more help. They may or may not be opened that today we discussed hospice. We discussed all the other options. I do not know what the options are but I know it is very hard to take care of him. He is somewhat improved but the chances of him going home needing come back for shortness of breath any moment are quite high. He does not really want hospice at this time. They are totally open to the idea of going to a half-way for a while but at least we had a long conversation about it implanted some seeds that down the road might be helpful perhaps. This is a very tricky situation. I have the greatest respect for both what he and his were doing and negative managed incredibly well with heart breaking and very very trying condition. Our ID of her medication was that he would take Bumex dose is 1 mg 1 day and alternate with 3 mg the next day. Obviously all of this is very from with danger because of electrolyte shifts because of blood pressure control because of pulmonary hypertension because of his severe respiratory failure. He and his both have the impression that [facility] / the [facility] pulmonary hypertension program a have said they do not have anything else to offer them. They will try to call them at our suggestion and see if they do have something to help. They will call us any time if they get in trouble Selected Entries 09/29/16 09/30/16 09/30/16 22:50 04:00 08:00 Heart Rate 74 97 73 Respiratory 20 20 16 Rate O2 Sat (%) 97 97 98 Temperature (C) 36.6 C Blood Pressure 119/66 112/57 L 138/63 H O2 (L/minute) 16 O2 Delivery Oxymask Mode Laboratory Tests 09/26/16 09/27/16 09/27/16 17:14 00:10 04:25 BUN 40 H Creatinine 1.1 Glucose 118 H Troponin I 0.051 H 0.045 H 0.059 H NT-Pro-B Natriuret Pep 40203 H 09/29/16 09/30/16 04:09 05:00 BUN 45 H 48 H Creatinine 1.4 H 1.5 H Glucose Troponin I NT-Pro-B Natriuret Pep Plan: 09/30/16 12:01 10/01/16 10:10 Subjective: He feels better today and would like to go home. He has no chest pain. His shortness of breath has improved. His is very eager to take him home Objective: Vital Signs Temp Pulse Resp BP Pulse Ox 36.3 C 77 16 107/65 97 10/01/16 07:28 10/01/16 09:11 10/01/16 07:28 10/01/16 07:28 10/01/16 07:28 Laboratory Results 09/27/16 04:25 10/01/16 04:32 09/30/16 10/01/16 10/02/16 05:59 05:59 05:59 Intake Total 910 910 Output Total 1105 775 Balance -195 135 Physical Exam - Physical Exam General Appearance: alert, mild distress Respiratory: rhonchi, prolonged expiration, No stridor, No wheezing Cardiac/Chest: No edema, No gallop Abdomen: normal bowel sounds, non-tender, soft Neuro/Psych: alert, normal mood/affect ICD10 Worksheet Patient Problems: Problems Problem Status Onset Acute exacerbation of congestive heart failure Acute Congestive cardiomyopathy Active Atrial fibrillation Acute Chronic Disease Mgmt/Transitional Care Acute Congestive heart failure Acute Fluid overload Acute Hyponatremia Acute Hypoxia Acute MRSA (methicillin resistant staph aureus) culture positive Acute 10/02/15 Pulmonary HTN Acute Renal insufficiency Acute Respiratory distress, acute Acute
--- NOTE | 2016-10-01 11:16 | PDIAF ---
- Diagnosis Diagnosis: Chronic hypoxemic respiratory failure, Pulmonary fibrosis, pulm htn Code Status: Limited Resuscitation - Medication Management Discharge Medications: Medications to Continue on Transfer Allopurinol [Allopurinol 300 MG (RX)] 300 mg PO DAILY 02/23/12 [Last Taken 09/26] Sildenafil Citrate [Revatio 20 MG (*)] 20 mg PO TID 03/20/13 [Last Taken 12:00] Atorvastatin Calcium [Lipitor 20 mg (*)] 20 mg PO HS 12/15/14 [Last Taken ] Omeprazole [Prilosec] 40 mg PO DAILY@12 12/15/14 [Last Taken 09/26/16] Ascorbic Acid [Vitamin C 500 mg (*)] 500 mg PO BID@10/01/15 [Last Taken ] Bumetanide [Bumex (*)] 2 mg PO DAILY #30 tab 10/07/15 [Last Taken 09/26/16] Iron/Vit C/Docusate [Allison-Sequels 65 mg (*)] 2 each PO DAILY@1800 12/09/15 [ Last Taken 09/25/16] Aspirin [Aspirin 81mg (*)] 81 mg PO DAILY 09/26/16 [Last Taken 09/25/16] Digoxin [Digox] 125 mcg PO DAILY 09/26/16 [Last Taken 09/26/16] Spironolactone [Aldactone 25 MG (*)] 50 mg PO DAILY 09/26/16 [Last Taken ] Discharge Medications: Refer to the Discharge Home Medication list for PRN reason. - Orders Services needed: Home Care, Registered Nurse, Physical Therapy, Occupational Therapy Home Care Face to Face: I certify that this patient was under my care and that I had the required pzzo-wp-ebhu encounter meeting the encounter requirements on the discharge day. My findings support the fact that the patient is homebound as defined in CMS Chapter 7 Medicare Benefits Manual 30.1.1, The condition of the patient is such that there exists a normal inability to leave home and consequently, leaving home would require a considerable and taxing effort. Diet Recommendation: cardiac -low fat low salt - Labs/Radiology BMP Date: 10/09/16 - Follow Up Care Current Providers and Referrals: Gaston Ramirez MD [Primary Care Provider] - As per Instructions Shorty Leblanc MD [Medical Doctor] -
[2016-10-01] MEDS: PANTOPRAZOLE SODIUM 40 MG TAB PO SCH (12:53)
[2016-10-01 13:11] VITALS: BP 95/69; PULSE 74; RESP 15; TEMP 97.5
--- NOTE | 2016-10-01 21:48 | GDS ---
[f rep st] DISCHARGE SUMMARY DISCHARGE DIAGNOSES: 1. Chronic hypoxemic respiratory failure. 2. Severe end-stage right heart failure with pulmonary artery pressure of 131. 3. End-stage pulmonary fibrosis. 4. Acute kidney injury, improved. 5. Hyponatremia, at baseline. 6. Sleep apnea. CONSULTANTS: 1. Dr. Faustino Steward, pulmonology. 2. Luisa Candelaria and Dr. Bo Rmaey, cardiology. IMAGING STUDIES/PROCEDURES: 1. Chest x-ray, September 26, 2016 showed a chronic severe cardiomegaly with patchy pulmonary edema. 2. CT pulmonary angiogram, September 26, 2016 was negative for pulmonary embolism. Again, showed ca rdiomegaly with poor cardiac output, small effusion suggestive of heart failure. 3. Echocardiogram, September 27, 2016 showed a left ventricular ejection fraction of 60%. Flattened septum consistent with RV volume overload. The right ventricle is severely dilated, with severe pu lmonary hypertension. Right ventricular systolic pressure is 131. Severely dilated right atrium. Of note, pulmonary artery pressure on this exam is increased from 100 compared to his November 2015 felix dy. HISTORY: For details please, see dictated History and Physical dated September 26, 2016. In brief, the patient is a 81-year-old male with severe pulmonary hypertension secondary to advanced pulmonary fibrosis who requires 15-25 L of oxygen at baseline, which he receives at home via facemask and jluis al cannula combined, who presents to the emergency department with worsening shortness of breath. Lulu garcia has previously been followed at the [place] pulmonary hypertension clinic, though have discharg ed him from their care, stating there are no further treatment options that they have to offer. Ese or to arrival, he had increased his Bumex dose from 1 mg daily up to 3 mg daily, but continued to redd ve weight gain and shortness of breath. He was admitted to the hospital for further management. HOSPITAL COURSE: The patient was admitted to the progressive care unit. Attempts were made aggress shay diuresis with IV Lasix and he did indeed diurese over 4 pounds; however, this affected no change in his oxygen requirement. Overall, I suspect his worsening shortness of breath is secondary to hi s progressive lung disease despite aggressive diuresis, to the point of a rise in his creatinine fro m 1 to 1.5 and to a BUN of 48, there is no affective change in his clinical status. Therefore, he i s to return to oral diuretic therapy. He was continued on his sildenafil, spironolactone. He had t he same oxygen requirement at discharge as he did on admission. New home oxygen orders are arranged for him to receive a new setup at home through [employer] to maintain his oxygen needs. A very lengthy discussion was had today with myself, the patient, his , and Dr. Bo Ramey, from the cardiolo gy service, regarding his care needs and overall prognosis. They have been involved with 2 [facility] hospice organizations and are not pleased with the hospice approach. They were urged to consider jail facility placement so he can have his care needs met. However, the patient and his are not interested in placement at this time and wish to go home with ongoing home care. He is followed closely by his primary care physician, and hospice is apparently involved on the periphery . DISPOSITION: Patient is discharged home in fair condition. His status is tenuous and he is at high risk for readmission, but he is refusing any placement at this time. DISCHARGE MEDICATIONS: Please see [employer] for complete updated outpatient medication list. He contreras l resume all medications as previously ordered. We will change his Bumex dose to 2 mg p.o. daily un til he has followup with Dr. Shorty Leblanc, his primary stopper grinder. Levaquin is discontinued as the re has been no evidence of infectious etiology of his symptoms. FOLLOWUP: 1. Dr. Gaston Ramirez, primary care provider. 2. Dr. Shorty Leblanc, [facility]. /[id number]/MODL
== END 2016-10-01 17:15 | disposition home health service (06) | DRG 292 ==
LOC: F2W 22:45 → UNDODISIN 10-01 14:55
PROVIDERS: ADMIT Hospitalist; ATTEND Hospitalist
DX: I50.9 Heart failure, unspecified (principal); N17.9 Acute kidney failure, unspecified; J96.11 Chronic respiratory failure with hypoxia; E87.1 Hypo-osmolality and hyponatremia; J84.10 Pulmonary fibrosis, unspecified; G47.33 Obstructive sleep apnea (adult) (pediatric); M10.9 Gout, unspecified; I10 Essential (primary) hypertension; E78.5 Hyperlipidemia, unspecified; I27.2 Other secondary pulmonary hypertension; K21.9 Gastro-esophageal reflux disease without esophagitis; I48.91 Unspecified atrial fibrillation; Z85.118 Personal history of other malignant neoplasm of bronchus and lung; Z87.891 Personal history of nicotine dependence; Z95.5 Presence of coronary angioplasty implant and graft
CPT/HCPCS: 96374; 97116-GP; 97163-GP; 97165-GO; 97530-GO; 97530-GP; G0463-PO; G8978-GP-CL; G8979-GP-CI; G8987-GO-CK; G8988-GO-CI; J1650; Q9967

== ENCOUNTER 2016-10-30 19:21 | Inpatient (IN) | payer OTHER ==
--- NOTE | 2016-10-30 19:46 | EDPHY ---
H & P Stated Complaint: increased weakness for few days and low sodium at 115 today Time Seen by Provider: 10/30/16 19:23 HPI/ROS: CHIEF COMPLAINT: Hyponatremia HISTORY OF PRESENT ILLNESS: The patient is a 81-year-old man who comes to the emergency department by EMS for hyponatremia. He has a history of severe hypoxemic respiratory failure with pulmonary hypertension and pulmonary fibrosis as well as brittle congestive heart failure, atrial fibrillation, chronic hyponatremia, coronary artery disease status post stent with a clean catheterization in 2010 and it lung cancer status post right upper lobe lobectomy. He reports that he has been feeling weak for the last couple of days. He had a lab draw yesterday and they called him today and told him to come to the emergency department because his sodium was 115. He felt too weak to come here on his own so called EMS. He denies having any pain. He denies recent fevers. He denies cough or cold. States that he is on a water restriction and has been obeying it. He is on 20 L oxygen by non-rebreather which is his baseline. He is saturating around 90% which is also his baseline. The patient at this point is still full code. They have discussed hospice several times but have not like the approach. REVIEW OF SYSTEMS: Constitutional: denies: chills, fever, recent illness, recent injury EENTM: denies: blurred vision, double vision, nose congestion Respiratory: See HPI Cardiac: denies: chest pain, irregular heart rate, lightheadedness, palpitations Gastrointestinal/Abdominal: denies: abdominal pain, diarrhea, nausea, vomiting, blood streaked stools Genitourinary: denies: dysuria, frequency, hematuria, pain Musculoskeletal: denies: joint pain, muscle pain Skin: denies: lesions, rash, jaundice, bruising Neurological: denies: headache, numbness, paresthesia, tingling, dizziness, weakness Hematologic/Lymphatic: denies: blood clots, easy bleeding, easy bruising Immunologic/allergic: denies: HIV/AIDS, transplant EXAM: GENERAL: Thin , weak . HEAD: Atraumatic, normocephalic. EYES: Pupils equal round and reactive to light, extraocular movements intact, sclera anicteric, conjunctiva are normal. ENT: TMs normal, nares patent, oropharynx clear without exudates. Moist mucous membranes. NECK: Normal range of motion, supple without lymphadenopathy or JVD. LUNGS: Diffuse rhonchi HEART: Regular rate and rhythm without murmurs, rubs or gallops. ABDOMEN: Soft, nontender, normoactive bowel sounds. No guarding, no rebound. No masses appreciated. BACK: No CVA tenderness, no spinal tenderness, step-offs or deformities EXTREMITIES: Normal range of motion, no pitting or edema. No clubbing or cyanosis. NEUROLOGICAL: Cranial nerves II through XII grossly intact. Normal speech, normal gait. 5/5 strength, normal movement in all extremities, normal sensation PSYCH: Normal mood, normal affect. SKIN: Warm, dry, normal turgor, no visible rashes or lesions. Source: Patient Exam Limitations: No limitations - Personal History Current Tetanus/Diphtheria Vaccine: Unsure Current Tetanus Diphtheria and Acellular Pertussis (TDAP): Unsure Tetanus Vaccine Date: < 10 yrs ago - Medical/Surgical History Hx Asthma: Yes Hx Chronic Respiratory Disease: Yes Hx Diabetes: No Hx Cardiac Disease: Yes Hx Renal Disease: No Hx Cirrhosis: No Hx Alcoholism: No Hx HIV/AIDS: No Hx Splenectomy or Spleen Trauma: No Other PMH: MEDICAL aTRIAL fIBRILLATION, pULMONARY htn, RIGHT SIDED LUNG CANCER. SURGERY APPENDECTOMY, BACK SURGERY, RIGHT KNEE REPAIR,R. upperlobectomy, - Family History Significant Family History: Hypertension - Social History Smoking Status: Former smoker Alcohol Use: Sober Drug Use: None Constitutional: Initial Vital Signs Temperature (C) 36.2 C 10/30/16 19:36 Heart Rate 77 10/30/16 19:36 Respiratory Rate 24 H 10/30/16 19:36 Blood Pressure 110/82 H 10/30/16 19:36 O2 Sat (%) 89 L 10/30/16 19:36 O2 Delivery Mode Hi-Flow Nasal Cannula O2 (L/minute) 40 Allergies/Adverse Reactions: amiodarone Allergy (Verified 10/30/16 19:35) MARINARA SAUCE Allergy (Mild, Uncoded 12/09/15 13:40) Vomiting Home Medications: Medication Instructions Recorded Allopurinol [Allopurinol 300 MG 300 mg PO DAILY 02/23/12 (RX)] Sildenafil Citrate [Revatio 20 MG 20 mg PO TID 03/20/13 (*)] Atorvastatin Calcium [Lipitor 20 20 mg PO HS 05/05/15 mg (*)] Omeprazole [Prilosec] 40 mg PO DAILY@12 12/15/14 Ascorbic Acid [Vitamin C 500 mg 500 mg PO BID@,10/01/15 (*)] Iron/Vit C/Docusate [Allison-Sequels 2 each PO BID@,12/09/15 65 mg (*)] Aspirin [Aspirin 81mg (*)] 81 mg PO HS 09/26/16 Digoxin [Digox] 125 mcg PO DAILY 09/26/16 Bumetanide [Bumex (*)] 2 mg PO BID@,10/30/16 Medical Decision Making - Diagnostics EKG Interpretation: An EKG obtained and was read and documented in trace view. Please see trace view for full reading and report. Atrial fibrillation with ventricular bigeminy , unchanged from previous ED Course/Re-evaluation: 8:50 p.m. discussed the case with Dr. Jamar Vaughn who agreed to admission. She is not sure either how to correct his hyponatremia. We discussed hypertonic saline. We discussed normal saline with Lasix or simply did fluid restriction. She requests that we consult Nephrology. He is on spironolactone and Bumex. 9:00 p.m. I discussed the case with Dr. Lynn from Neurology. He will consult. He recommends treating the patient with fluid restriction of 1 L per day at this point and obtaining a urine osmoles and urine sodium for further delineation. Differential Diagnosis: Partial list of the Differential diagnosis considered include but were not limited to; hyponatremia, CHF, pulmonary fibrosis and although unlikely based on the history and physical exam, I also considered sepsis, pneumonia. Other Provider: Critical care time spent by me, Dr. Mccoy exclusive with this patient was 35 minutes, exclusive of the PA time exclusive of procedures. The organ system that was at risk was pulmonary and renal and I gave holding IV fluids, discussion of saline for repletion and consulting specialists to prevent worsening of the patient's condition - Data Points Laboratory Results: Laboratory Results 10/30/16 19:36 10/30/16 19:36 Medications Given: Discontinued Medications Digoxin (Lanoxin) 125 mcg PO DAILY HENRY Stop: 04/29/17 08:59 Last Admin: 10/31/16 09:08 Dose: 125 mcg Sodium Chloride (Ns) 1,000 mls @ 125 mls/hr IV CONT HENRY Stop: 10/31/16 06:59 Last Admin: 10/30/16 23:33 Dose: 1,000 mls Departure - Departure Disposition: [facility] Clinical Impression: Hyponatremia, Hypoxia, Respiratory distress, acute Congestive heart failure Qualifiers: Congestive heart failure type: unspecified congestive heart failure type Congestive heart failure chronicity: chronic Qualified Code(s): I50.9 - Heart failure, unspecified Condition: Fair
[2016-10-30 19:52] LABS: % IMMATURE GRANULYOCYTES 0.4 % (0.0-1.1); ABSOLUTE IMMATURE GRANULOCYTES 0.05 10^3/uL (0.00-0.10); ABSOLUTE NRBC COUNT 0.02 10^3/uL (0-0.01); ADD DIFF? NO; ADD MORPH? NO; ADD SCAN? NO; ATYPICAL LYMPHOCYTE FLAG 0 (0-99); FRAGMENT RBC FLAG 20 (0-99); HEMATOCRIT 43.4 % (40.0-51.0); HEMOGLOBIN 15.3 g/dL (13.7-17.5); LEFT SHIFT FLG 0 (0-99); LIPEMIA HEMOLYSIS FLAG 90 (0-99); MEAN CELL HEMOGLOBIN 34.2 pg (27.9-34.1); MEAN CELL HEMOGLOBIN CONCENTR. 35.3 g/dL (32.4-36.7); MEAN CELL VOLUME 97.1 fL (81.5-99.8); MEAN PLATELET VOLUME 11.9 fL (8.7-11.7); NRBC-AUTO% 0.2 % (0.0-0.2); PLATELET CLUMPS FLAG 10 (0-99); PLATELET COUNT 108 10^3/uL (150-400); RED BLOOD CELL COUNT 4.47 10^6/uL (4.40-6.38); RED CELL DISTRIBUTION WIDTH 15.5 % (11.5-15.2)
[2016-10-30 19:56] LABS: INR 1.14 (0.83-1.16); PROTIME(PATIENT) 14.5 SEC (12.0-15.0)
[2016-10-30 19:57] LABS: APTT 33.8 SEC (23.0-38.0)
[2016-10-30 20:03] LABS: ANION GAP 12 mEq/L (8-16); CALCIUM 9.5 mg/dL (8.5-10.4); CARBON DIOXIDE 24 mEq/l (22-31); CHLORIDE 79 mEq/L (97-110); CREATININE 1.1 mg/dL (0.7-1.3); GLOMERULAR FILTRATION RATE > 60; GLUCOSE 94 mg/dL (70-100); POTASSIUM 5.8 mEq/L (3.5-5.2)
--- NOTE | 2016-10-30 20:07 | CPEKG ---
Heart Rate: 91 RR Interval: 659 QRSD Interval: 98 QT Interval: 344 QTC Interval: 424 QRS Turner: 115 T Wave Turner: -68 EKG Severity - ABNORMAL ECG - EKG Impression: ATRIAL FIBRILLATION EKG Impression: VENTRICULAR BIGEMINY EKG Impression: RIGHT AXIS DEVIATION EKG Impression: SIMILARTO PREVIOUS Electronically Signed By: Charan Mccoy 30-Oct-2016 20:12:16
[2016-10-30 20:23] LABS: SODIUM 115 mEq/L (134-144)
[2016-10-30 21:23] LABS: COLOR YELLOW; LEUKOCYTE ESTERASE,URINE NEGATIVE (NEGATIVE); NITRITE,URINE NEGATIVE (NEGATIVE)
[2016-10-30] MEDS ORDERED: ONDANSETRON DISINTEGRATING 4 MG TAB PO PRN (22:51)
[2016-10-30] MEDS ORDERED: ONDANSETRON 4 MG/2 ML VIAL IVP PRN (22:51)
[2016-10-30] MEDS ORDERED: ACETAMINOPHEN 325 MG TAB PO PRN (22:51)
[2016-10-30] MEDS ORDERED: NS 1,000 ML IV SCH (23:00)
--- NOTE | 2016-10-30 23:42 | GHP ---
[f rep st] HISTORY AND PHYSICAL DATE OF ADMISSION: 10/30/2016 HISTORY OF PRESENT ILLNESS: The patient is a pleasant 81-year-old gentleman with interstitial lung disease/pulmonary fibrosis as well as severe pulmonary hypertension, who presents with generalized w eakness as well as fatigue. He actually had an outpatient Chem-7 drawn today and he was notified of sodium 115. He was referred to the emergency department. It was 117 earlier and it was 115 today. His baseline was 120 last week. His baseline appears to be in the high 120s. He was admitted in September for diuresis and responded reasonably well with IV Lasix with 4 kg, curr ently on Bumex. When I see the patient, he notes some orthostatic type symptoms as well as decreased urination. He said he had been eating and drinking normally. He follows a low-salt diet but his states he redd s had slightly saltier food. She described the way they cook and it sounds like she makes home prep ared meals that are not particularly salty. His dyspnea is about the same. His notes today he was kind of blah but not confused. He has not been hallucinating or hearing voices. In the past, he has been followed at [facility] by Dr. Monroe davis. It sounds like he still is, although they missed their July appointment, so it has been a bit of time since they were seen. He has not had chest pain or productive cough or fever. REVIEW OF SYSTEMS: Complete 10-point review of systems conducted and negative except as noted in th e HPI. PAST MEDICAL HISTORY: 1. Severe pulmonary hypertension. During echocardiogram on last admission his pulmonary artery pre ssure was 131 mmHg. 2. Chronic hypoxemic respiratory failure on 15-20 L at home. It sounds like he has high-flow oxyge n plus a face mask. 3. Lung cancer, status post right upper lobe resection. 4. Atrial fibrillation. 5. Gout. 6. Hypertension, hyperlipidemia, coronary artery disease with prior stent. Clean catheterization i n 2010. 7. Obstructive sleep apnea. 8. Chronic hyponatremia. 9. Reflux. 10. History of empyema with a PleurX catheter. 11. He has had right knee surgery. HOME MEDICATIONS: Allopurinol, sildenafil, Bumex, digoxin, atorvastatin, aspirin, ferrous sequels, iron, omeprazole, oxygen. SOCIAL HISTORY: No tobacco. Minimal alcohol. Lives in [place] with his . FAMILY HISTORY: Parents . PHYSICAL EXAM: VITAL SIGNS: Presenting vitals temperature 36.2, blood pressure 110/82, pulse 77, b reathing 24 times a minute, 89% on 12 L. GENERAL: Chronically ill-appearing, but no acute distress . HEENT: Sclerae anicteric. Oropharynx clear. Mucous membranes are moist. NECK: Supple without lymphadenopathy. He does have elevated JVD but he is lying at about 15 degrees. LUNGS: Show fine crackles without good air movement. HEART: S1, S2. ABDOMEN: Soft, nontender, nondistended. LOW ER EXTREMITIES: Show chronic venous stasis changes but essentially no edema. There is no presacral edema. NEUROLOGIC: Grossly nonfocal. SKIN: Without rash. LABS: Sodium is 150, potassium 5.8, chloride 79, bicarb 24, BUN 63, creatinine 1.1. His baseline c reatinine is about 0.9. Glucose 94. Previous BNP was 13,700. Looks like his baseline over the t couple years has been greater than 10,000, maybe even higher than that. White count 11, hematocri t is 43, platelets are 108,000. Coags normal. EKG, interpreted by me, shows right axis deviation, with no ST or T-wave changes and frequent PVCs. Chest x-ray, interpreted by me, is a lordotic film, AP, poor quality, just shows pulmonary fibrosis and good air movement. I discussed the case with Elizabeth Mccoy. ASSESSMENT/PLAN: A 81-year-old gentleman with severe pulmonary fibrosis and pulmonary hypertension, presents with hyponatremia. 1. Hyponatremia. I believe this is hypovolemic hyponatremia from over-diuresis. I will repeat his sodium now. I am going to give him gentle IV fluids and repeat his sodium at about 3:00 in the [facility] and follow up on it. I will hold his Bumex. Renal has been consulted. Urine electrolytes contreras l be ordered. 2. Pulmonary fibrosis. He is followed as an outpatient. There is really no treatment for this. 3. Acute kidney injury. Patient's creatinine is greater than baseline. Again, I believe he is hyp ovolemic from over diuresis. We will hold diuretics and give him IV fluids and follow. 4. Prophylaxis. Pharmacologic prophylaxis indicated. Start low-molecular heparin dosed renally. CODE STATUS: The patient is Do Not Resuscitate, meaning no CPR. It is not clear that he would want intubation. DISPOSITION: Inpatient status. /[id number]/MODL
[2016-10-31 03:34] LABS: ANION GAP 9 mEq/L (8-16); CALCIUM 8.4 mg/dL (8.5-10.4); CARBON DIOXIDE 24 mEq/l (22-31); CHLORIDE 86 mEq/L (97-110); GLOMERULAR FILTRATION RATE > 60; GLUCOSE 73 mg/dL (70-100); POTASSIUM 5.2 mEq/L (3.5-5.2)
[2016-10-31 03:43] LABS: SODIUM 119 mEq/L (134-144)
[2016-10-31 07:41] LABS: ANION GAP 10 mEq/L (8-16); CALCIUM 8.6 mg/dL (8.5-10.4); CARBON DIOXIDE 22 mEq/l (22-31); CHLORIDE 84 mEq/L (97-110); GLOMERULAR FILTRATION RATE > 60; GLUCOSE 71 mg/dL (70-100); POTASSIUM 5.3 mEq/L (3.5-5.2)
[2016-10-31 08:31] LABS: SODIUM 116 mEq/L (134-144)
[2016-10-31] MEDS ORDERED: DIGOXIN 125 MCG TAB PO SCH (09:00)
[2016-10-31] MEDS ORDERED: ENOXAPARIN 30 MG/0.3 ML SYR SC SCH (09:00)
[2016-10-31] MEDS: SILDENAFIL CITRATE 20 MG TAB PO SCH ×3 (09:08→20:58)
[2016-10-31] MEDS: ENOXAPARIN 40 MG/0.4 ML SYR SC SCH (09:08)
[2016-10-31] MEDS ORDERED: NS 1,000 ML IV SCH ×2 (11:30→17:30)
--- NOTE | 2016-10-31 12:24 | GCON ---
[f rep st] CONSULTATION NEPHROLOGY CONSULTATION. DATE OF CONSULTATION: 10/31/2016 REASON FOR CONSULTATION: Severe hyponatremia. HISTORY OF PRESENT ILLNESS: This is a chronically ill, 81-year-old male, with a past medical histor y significant for severe cor pulmonale, secondary to advanced interstitial lung disease. The patien t has a history of chronic hyponatremia, and had labs drawn relating to weakness and fatigue. This demonstrated a serum sodium level of 115, and he was thus referred for definitive management. The patient has had longstanding issues with hyponatremia. In reviewing, his past records, he has h ad intermittent low sodium levels since 2008. He did have an excursion to 126 in 2012, and he went down to 120 in 2014. More recently, he has been chronically running between 121 and 130. The patie nt had been noted to be 120 one week prior to his admission. As noted above, the patient has severe cor pulmonale, his blood pressures typically run around 100. He is maintained on some diuretics for ascites and lower extremity edema. He had been on spironola ctone up until 1 month prior to his admission. It had been stopped likely due to high potassium lev els. Since his admission last evening, his sodium level has remained in the 1 teens. His rhythm is notab le for a bigeminy, with a rate of 80, with ineffective perfused rate of 40. The patient and his wif e do state that he has been weaker than normal recently, and has had some lightheadedness. His inta ke of solid food has decreased somewhat. He drinks moderate amounts of water. Initial laboratory s tudies performed demonstrate a random urine sodium less than 5, and a urine osmolality of 306. As r elated to these issues, we are asked by the primary service to assist the patient's renal diagnosis and management. PAST MEDICAL HISTORY: 1. Severe pulmonary hypertension with pulmonary artery pressures of 130 systolic. 2. Chronic respiratory failure, on 15-20 L at home. 3. Lung cancer status post right upper lobe resection. 4. History of atrial fibrillation. 5. Gout. 6. Hypertension. 7. Hyperlipidemia. 8. Coronary artery disease status post stenting. 9. Sleep apnea. 10. Chronic hyponatremia. 11. Interstitial lung disease. 12. Reflux. 13. History of empyema. SURGICAL HISTORY: Right knee surgery. MEDICATIONS: Home medications: Allopurinol, sildenafil, Bumex, digoxin, atorvastatin, aspirin, iro n, omeprazole. FAMILY HISTORY: Noncontributory. SOCIAL HISTORY: The patient lives at home with his . He has 2 children who are not nearby. He is originally from [place]. He has lived in [place] for 26 years. He worked in [employer] and [employer] in the [employer]. He has a remote smoking history. He drinks 3 drinks daily. REVIEW OF SYSTEMS: His review of systems is completely negative, except for some weakness, lighthea dedness, chronic rhinitis from the high-flow oxygen, ascites, and lower extremity edema. PHYSICAL EXAM: GENERAL: At time of exam, the patient is awake and alert. VITAL SIGNS: Temperature 35.7, pulse 74, blood pressure 98/44. HEENT: Eyes, sclerae are clear. Oropharynx not examined. NECK: Jugular venous distention is noted. LUNGS: Diminished breath sounds with rales. CARDIOVASC ULAR: Irregular regular rhythm. ABDOMEN: Soft. : Milner catheter in place. RECTAL: Deferred. EXTRE MITIES: Trace edema. INTEGUMENT: Generally clear. NEURO: No focal findings are noted, but the pa dorothy has generalized weakness. LABORATORY STUDIES: Sodium 116, potassium 5.3, chloride 84, bicarb 22, creatinine 1.02. White coun t 11.4, hematocrit 43.4, platelet count 108. IMPRESSION AND PLAN: 1. Severe hyponatremia. The patient does have severe hyponatremia with sodium levels as low as 115 . This is likely at least partly related to hemodynamically released vasopressin, given his poor ca rdiac output. The latter is from both his cor pulmonale and now his rhythm disturbance. At the [facility] e time, the patient likely has some decreased solute intake of late. I did spend time discussing e physiology of this hyponatremia with the patient and his . For now, we will fluid restrict e patient, and place him on a higher solute diet. We will give him a small amount of normal saline, and then recheck laboratory studies. Our goal would be to correct him into the low 120s, over the first 24 hours. Given his physiology, I would not expect him to develop worsening hypoxemia with so me fluid administration. Rather, it should help his preload, and improve renal perfusion. We will continue to monitor closely. 2. Hemodynamics. The patient is in a bigeminy with effective perfused rate of 40. This is not adequate. Given his moderately elevated potassium levels, and his rhythm, we will check a d igoxin level, and hold his digoxin. 3. Hyperkalemia. This is likely a flow dependent issue. We will place him on a low-potassium diet . As noted above, we will check a digoxin level. Thank you for allowing us to participate in this gentleman's care. We will continue to follow along closely with you. /[id number]/MODL
[2016-10-31] MEDS: FERRO-SEQUELS 65 MG TAB.ER PO SCH ×2 (13:14→17:38)
[2016-10-31] MEDS: PANTOPRAZOLE SODIUM 40 MG TAB PO SCH (13:14)
[2016-10-31] MEDS: ASCORBIC ACID 500 MG TAB PO SCH ×2 (13:14→20:58)
--- NOTE | 2016-10-31 15:29 | GCON ---
[f rep st] CONSULTATION PULMONARY CONSULTATION DATE OF CONSULTATION: 10/31/2016 HPI: The patient is a 81-year-old male with a history of end-stage pulmonary hypertension in the se tting of moderate interstitial lung disease and severe hypoxemia, who was admitted yesterday when [facility] laboratory studies found a sodium of 115 against a baseline of approximately 130. The patient has had prolonged difficulty with pulmonary hypertension and had previously been evaluated at the [facility] as well as by Dr. Steward. His pulmonary hyperte nsion is quite severe, having had a mean pulmonary artery pressure of 50 measured at a right heart c ath in the past as well as a systolic estimated pressure of 131 on a recent echocardiogram, with sev erely reduced right ventricular function and a cardiac index of only 2.0. He was hospitalized at [facility] in September with increasing shortness of breath. An attempt at diuresis really had little to no change in the severe oxygen requirement, which at baseline is 15-25 L/minute. During t [facility] hospitalization, he had lengthy discussions with his care team about jail facility pl acement as well as multiple previous hospice evaluations, neither of which the patient and his were interested in pursuing despite the quite high risk. A similar hospitalization occurred at [facility] in April of 2016, where he was admitted with increasing oxygen requirements potentially a fter starting macitentan despite discouragement about starting the drug by Dr. Saenz. During that hospitalization, he also had an aggressive diuresis to the point of an increasing creatinine, but t here was no substantial change in his oxygen requirement. He did benefit to some degree with discon tinuation of the macitentan in terms of an oxygen requirement but was discharged on 25 L/minute oxyg en flow after having identified a vendor willing to provide it. He was urged to start hospice at at time and declined it then as well. Following his more recent admission at [facility], he had labs drawn that showed a sodium of 115 and was urged to be admitted to the hospital for further management. He was initially thought to potentially have been over diuresed and was given IV fluids, and his sodium did increase initially to 119, which resulted in discontinuation of his IV fluids. A repeat sodium is 116. According to the patient, he had no symptoms really prior to admi ssion although his thought that he was a little less sharp, but there were no syncopal events. He denied any chest pain or changes in his breathing or oxygen requirements. REVIEW OF SYSTEMS: Otherwise negative. PAST MEDICAL HISTORY: Includes: 1. Interstitial lung disease. This is been poorly characterized and poorly understood in terms of its actual etiology. At his last hospitalization, this was thought to be the cause of his hypoxemia although his vital capacity at least measured in the fall was 60% of predicted suggesting only mode rate disease. 2. Severe end-stage pulmonary hypertension. As described in the HPI, his mean pressure, at least t he last one I could find, was at 50, which is severe pulmonary hypertension. His most recent echo s hows reduced right ventricular function as well. The etiology of this problem is likely multifactor ial including currently untreated sleep apnea, diastolic dysfunction, with a contribution of his poo rly characterized interstitial lung disease. There is also a possibility of concomitant group 1 PAH , and he is currently on sildenafil alone for this therapy. He has been evaluated at [facility] and may have actually been discharged from them, but has not been thought to be a candidate for more advanced care such as epoprostenol, atrial septostomy, or marianne ng transplant. 3. Severe hypoxemia. This is likely a result primarily due to his pulmonary hypertension with cert ainly contributions from his interstitial lung disease and his currently untreated sleep apnea. His baseline requirement is thought to be between 15 and 25 L/minute of oxygen to maintain a normal oxy gen saturation. 4. Obstructive sleep apnea. It is unclear to me what his apnea-hypopnea index is at this time, but he states that he is unable to use CPAP for the last several months due to the inability to maintai n oxygen flow rates during CPAP therapy. This is likely a contributor to his severe pulmonary hyper tension. 5. Lung cancer. This was diagnosed I believe in 2011, and he underwent lobectomy. 6. Gastroesophageal reflux disease. 7. Chronic hyponatremia. His baseline appears to be in the 130s, more recently about 120. 8. Empyema. This occurred in the past. He was treated with a PleurX catheter. 9. Atrial fibrillation. Controlled with digoxin. PAST SURGICAL HISTORY: Includes right knee surgery in the past. SOCIAL HISTORY: He is a nonsmoker. Drinks some alcohol I believe, but no IV drug use. FAMILY HISTORY: Noncontributory at this time. CURRENT MEDICATIONS: Include Tylenol, vitamin C, aspirin, Lipitor, Lovenox, ferrous sequel, Zofran, Protonix, Revatio 20 mg p.o. t.i.d., digoxin which was held today. PHYSICAL EXAMINATION: VITAL SIGNS: His current blood pressure is 114/50 with a heart rate of 85, r espiratory rate of 32, oxygen saturation 94% on Vapotherm with 100% FiO2 at 35 L/minute, temperature is 36.5, and he has remained afebrile. GENERAL: He is a pleasant man who is easily aroused from s leep, spoke in full sentences without using accessory muscles for breathing. HEENT: His pupils are equally round and reactive to light. Nonicteric and noninjected. Mucous membranes are moist witho ut erythema or exudate. NECK: Supple without adenopathy. Breath sounds are somewhat distant but a ppear to be fairly clear without obvious rales or rhonchi. HEART: Sounds are equally distant, some what irregular. Murmurs are present but poorly characterized. ABDOMEN: Soft, nontender, nondisten ded without obvious hepatosplenomegaly and no pulsatile masses. EXTREMITIES: 1+ edema bilaterally. NEUROLOGIC: Grossly nonfocal including cranial nerves and deep tendon reflexes. SKIN: Warm and dry without evidence of rash. OBJECTIVE DATA: Includes white count of 11.4, hematocrit 43, platelets of 108 on admission. His so dium was initially 115; this morning was 116 with a potassium of 5.3, chloride of 84, bicarb 22, BUN 63, creatinine 1.02. Urinalysis showed protein but was largely negative. Urine sodium was only le ss than 5. Urine osmolality was 306. Blood cultures were drawn, which were negative x4. ASSESSMENT/PLAN: 1. Hyponatremia. 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 I agree with a fluid restriction in this situation and keep his sodium from rising too rapidly, generally less than 10 mEq in the 1st 24 hours and less than 18 mEq in the 1st 48 hours. There has also been a renal consult, who would likely be quite helpful in managing this chronic problem. Complicating his situation of course is his right heart failure, whi ch is likely contributing to this problem. 2. Pulmonary hypertension. This is really severe end-stage pulmonary hypertension with little to n o therapeutic options at this time. Based on what I read in his chart today, I certainly agree with hospice, but he apparently has been resistant to this plan moving forward. A brief discussion with his suggested that he is a limited DNR such that no CPR and defibrillations would be administe red, but he would consider ventilation "for a short time," but she was uncertain as to how long that meant. We did not discuss this in any further detail at this time. The only therapeutic piece I s uppose at this time is to continue his sildenafil and try to maintain his oxygen saturation. 3. Hypoxemia. He did respond to Vapotherm at extremely high doses, and I would say his oxygenation is quite tenuous at this time. Should he deteriorate and require mechanical ventilation to support his hypoxemia, I think he is very unlikely to survive that event, and I will attempt to readdress t his situation with both the patient and his in the future. In terms of etiology with hypoxemia , I think this is more likely his pulmonary hypertension with a possible contribution from his inter stitial lung disease though based on comments from the [facility] admission in April, his lung disease is really very moderate, and there is no specific therapy for this in any case. 4. Bigeminy. He is maintaining his blood pressure. This is usually an asymptomatic event. It is quite reasonable to hold his digoxin and check a level moving forward. 5. Obstructive sleep apnea. This is currently untreated and though by itself usually does not caus e severe pulmonary hypertension, it is very likely a contributor to his end-stage disease. A total of approximately 60 minutes was required to evaluate this critically ill patient, who is ext remely tenuous at this time, with a very complex course. /[id number]/MODL
[2016-10-31 16:27] LABS: ALBUMIN 3.4 g/dL (3.5-5.0); ANION GAP 9 mEq/L (8-16); CALCIUM 9.2 mg/dL (8.5-10.4); CARBON DIOXIDE 22 mEq/l (22-31); CHLORIDE 84 mEq/L (97-110); CREATININE 1.1 mg/dL (0.7-1.3); DIGOXIN 2.9 ng/mL (0.8-2.0); GLOMERULAR FILTRATION RATE > 60; GLUCOSE 114 mg/dL (70-100); SPECIMEN HEMOLYSIS 141
[2016-10-31 16:38] LABS: SODIUM 115 mEq/L (134-144)
[2016-10-31] MEDS ORDERED: ALTEPLASE 2 MG VIAL IVP PRN (17:15)
--- NOTE | 2016-10-31 17:19 | SOAPPROG ---
SOAP Progress Note Assessment/Plan: Assessment: Pt was given some NS earlier today, then held for labs. Labs had long turnaround. Repeat labs show Na 115 and K 6. There may have been some hemolysis. Cortisol level ok. Cards saw patient earlier. His Current rhythm is unchanged from baseline. K is very concerning, although some of this may be hemolysis. Increasing tubular flow with volume may help with K excretion. However, this may be due to dig toxicity. For now, change to ICU status. Place PICC. Give NS and follow Na and K levels. If K remains high, and is not due to hemolysis, will give digibind. I have alerted pharmacy. Cards does not see contraindication. I would like to see his sodium come up into the upper teens before giving digibind, as his Na could drop with an acute drop in his K. Monitor closely. Plan: 10/31/16 17:13 Objective: Vital Signs Temp Pulse Resp BP Pulse Ox 36.8 C 81 29 H 107/53 L 100 10/31/16 16:43 10/31/16 16:43 10/31/16 16:43 10/31/16 16:43 10/31/16 16:43 Laboratory Results 10/31/16 16:00 10/30/16 10/31/16 11/01/16 05:59 05:59 05:59 Intake Total 666 Output Total 125 Balance 541 PT 14.5 SEC (12.0-15.0) 10/30/16 19:36 INR 1.14 (0.83-1.16) 10/30/16 19:36 ICD10 Worksheet Patient Problems: Problems Problem Status Onset Congestive heart failure Acute Hyponatremia Acute Hypoxia Acute Respiratory distress, acute Acute Congestive cardiomyopathy Active Acute exacerbation of congestive heart failure Acute Atrial fibrillation Acute Chronic Disease Mgmt/Transitional Care Acute Fluid overload Acute Hyponatremia Acute MRSA (methicillin resistant staph aureus) culture positive Acute 10/02/15 Pulmonary HTN Acute Renal insufficiency Acute
--- NOTE | 2016-10-31 18:19 | HOSPPROG ---
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 Fuentes - renal consulted -continue serial sodium with slow correction * End stage pulmonary HTN -hospice recommended and declined -continue Revatio * Chronic respiratory failure due to pulm HTN and ILD -15-20L baseline * Lung cancer s/p RUL resection * Digoxin toxicity -hold digoxin - renal considering Digibind * Afib * CAD/stent -ASA/Lipitor * Bigeminy -renal requests cardiology consult as under perfusion of kidneys Subjective: No complaints. Objective: Vital Signs Temp Pulse Resp BP Pulse Ox 36.8 C 81 29 H 107/53 L 100 10/31/16 16:43 10/31/16 16:43 10/31/16 16:43 10/31/16 16:43 10/31/16 16:43 Laboratory Results 10/31/16 16:00 10/30/16 10/31/16 11/01/16 05:59 05:59 05:59 Intake Total 666 1123 Output Total 125 625 Balance 541 498 PT 14.5 SEC (12.0-15.0) 10/30/16 19:36 INR 1.14 (0.83-1.16) 10/30/16 19:36 tele reviewed - bigeminy - Physical Exam Constitutional: no apparent distress, appears nourished, not in pain Cardiovascular: regular rate and rhythym, no murmur, rub, or gallop, No edema Respiratory: no respiratory distress, inspiratory crackles, No expiratory wheeze , No rhonchi Gastrointestinal: normoactive bowel sounds, soft, non-tender abdomen, no palpable masses Skin: no rashes or abrasions, no fluctuance, no induration Neurologic: AAOx3, sensation intact bilaterally Psychiatric: interacting appropriately, not anxious, not encephalopathic, thought process linear ICD10 Worksheet Patient Problems: Problems Problem Status Onset Congestive heart failure Acute Hyponatremia Acute Hypoxia Acute Respiratory distress, acute Acute Congestive cardiomyopathy Active Acute exacerbation of congestive heart failure Acute Atrial fibrillation Acute Chronic Disease Mgmt/Transitional Care Acute Fluid overload Acute Hyponatremia Acute MRSA (methicillin resistant staph aureus) culture positive Acute 10/02/15 Pulmonary HTN Acute Renal insufficiency Acute
[2016-10-31 18:53] LABS: ANION GAP 6 mEq/L (8-16); CALCIUM 8.8 mg/dL (8.5-10.4); CARBON DIOXIDE 28 mEq/l (22-31); CHLORIDE 81 mEq/L (97-110); CREATININE 1.1 mg/dL (0.7-1.3); GLOMERULAR FILTRATION RATE > 60; GLUCOSE 101 mg/dL (70-100); POTASSIUM 5.8 mEq/L (3.5-5.2)
[2016-10-31 19:04] LABS: SODIUM 115 mEq/L (134-144)
[2016-10-31 20:51] LABS: ANION GAP 8 mEq/L (8-16); CALCIUM 8.9 mg/dL (8.5-10.4); CARBON DIOXIDE 25 mEq/l (22-31); CHLORIDE 81 mEq/L (97-110); CREATININE 1.1 mg/dL (0.7-1.3); GLOMERULAR FILTRATION RATE > 60; GLUCOSE 108 mg/dL (70-100); POTASSIUM 5.1 mEq/L (3.5-5.2)
[2016-10-31 20:58] LABS: RANDOM URINE POTASSIUM 63.3 mEq/L (0.5-35.0)
[2016-10-31] MEDS: ATORVASTATIN CALCIUM 20 MG TAB PO SCH (20:58)
[2016-10-31] MEDS: ASPIRIN 81 MG CHEWABLE TAB PO SCH (20:58)
[2016-10-31 20:59] LABS: SODIUM 114 mEq/L (134-144)
[2016-10-31] MEDS ORDERED: SODIUM Cl 3% 500 ML IV SCH (21:30)
[2016-11-01 00:44] LABS: ANION GAP 6 mEq/L (8-16); CALCIUM 9.1 mg/dL (8.5-10.4); CARBON DIOXIDE 28 mEq/l (22-31); CHLORIDE 82 mEq/L (97-110); CREATININE 1.1 mg/dL (0.7-1.3); GLOMERULAR FILTRATION RATE > 60; GLUCOSE 92 mg/dL (70-100); POTASSIUM 5.3 mEq/L (3.5-5.2)
[2016-11-01] MEDS: VANCOMYCIN HCL/NORMAL SALINE 250 ML IV SCH ×3 (00:47→12:40)
[2016-11-01 00:54] LABS: SODIUM 116 mEq/L (134-144)
[2016-11-01 04:40] LABS: % IMMATURE GRANULYOCYTES 0.6 % (0.0-1.1); ABSOLUTE IMMATURE GRANULOCYTES 0.05 10^3/uL (0.00-0.10); ABSOLUTE NRBC COUNT 0.03 10^3/uL (0-0.01); ADD DIFF? NO; ADD MORPH? NO; ADD SCAN? NO; ATYPICAL LYMPHOCYTE FLAG 10 (0-99); FRAGMENT RBC FLAG 20 (0-99); HEMOGLOBIN 13.3 g/dL (13.7-17.5); LEFT SHIFT FLG 0 (0-99); LIPEMIA HEMOLYSIS FLAG 90 (0-99); MEAN CELL HEMOGLOBIN 34.8 pg (27.9-34.1); MEAN CELL HEMOGLOBIN CONCENTR. 35.9 g/dL (32.4-36.7); MEAN CELL VOLUME 96.9 fL (81.5-99.8); MEAN PLATELET VOLUME 12.5 fL (8.7-11.7); NRBC-AUTO% 0.4 % (0.0-0.2); PLATELET CLUMPS FLAG 0 (0-99); PLATELET COUNT 111 10^3/uL (150-400); RED BLOOD CELL COUNT 3.82 10^6/uL (4.40-6.38); RED CELL DISTRIBUTION WIDTH 15.8 % (11.5-15.2)
[2016-11-01 04:54] LABS: ALANINE AMINOTRANSFERASE 33 IU/L (21-72); ALBUMIN 2.7 g/dL (3.5-5.0); ALKALINE PHOSPHATASE 103 IU/L (38-126); ANION GAP 7 mEq/L (8-16); ASPARTATE AMINOTRANSFERASE 30 IU/L (17-59); BILIRUBIN,TOTAL 0.8 mg/dL (0.1-1.4); BILIRUBIN-CONJUGATED 0.4 mg/dL (0.0-0.5); BILIRUBIN-UNCONJUGATED 0.4 mg/dL (0.0-1.1); CALCIUM 9.1 mg/dL (8.5-10.4); CARBON DIOXIDE 26 mEq/l (22-31); CHLORIDE 84 mEq/L (97-110); CREATININE 1.1 mg/dL (0.7-1.3); DIGOXIN 2.1 ng/mL (0.8-2.0); GLOMERULAR FILTRATION RATE > 60; GLUCOSE 80 mg/dL (70-100); POTASSIUM 5.1 mEq/L (3.5-5.2); TOTAL PROTEIN 5.3 g/dL (6.3-8.2)
[2016-11-01 05:05] LABS: SODIUM 117 mEq/L (134-144)
[2016-11-01] MEDS ORDERED: SODIUM Cl 3% 500 ML IV ONE (07:00)
[2016-11-01 08:52] LABS: ANION GAP 6 mEq/L (8-16); CARBON DIOXIDE 26 mEq/l (22-31); CHLORIDE 86 mEq/L (97-110); GLOMERULAR FILTRATION RATE > 60; GLUCOSE 75 mg/dL (70-100); POTASSIUM 5.1 mEq/L (3.5-5.2)
[2016-11-01 09:17] LABS: SODIUM 118 mEq/L (134-144)
[2016-11-01] MEDS: SILDENAFIL CITRATE 20 MG TAB PO SCH ×3 (10:42→21:14)
[2016-11-01] MEDS: ENOXAPARIN 40 MG/0.4 ML SYR SC SCH (10:42)
--- NOTE | 2016-11-01 11:10 | ECHO ---
[id number] + + [address] : : [place] [address] : : [phone] + + Adult Echocardiographic Report + ------+ :Name: TRACIE BRICE Padminiwu Date: 11/01/2016 07:47 AM BP: 105/55 mmHg : : Hospital Admission Number: [id number] Jerzyatio n: 255: :: 1935 Gender: Male : :Age: 81 yrs Race: WH,White : :Reason For Study: LTD to reassess LVFX and rt heart pressures : :History: RT heart failure : + ------+ MMode/2D Measurements \T\ Calculations IVSd: 0.71 cm LVIDd: 3.0 cm FS: 26.5 % LVPWd: 0.85 cm LVIDs: 2.2 cm EDV(Teich): 34.7 ml ESV(Teich): 16.2 ml EF(Teich): 53.5 % Normal Measurement Values: + + :LVIDd (3.5-5.7cm) IVSd (0.6-1.1cm) LVPWd (0.6-1.1cm) Aortic Root (2.0-3.7cm)Left Atrium (1.5-4.0cm): :LV Vol(d) (76-115ml) LV Vol(s) (29-48ml) Ejec Fraction (50-65%)PV Albino (0.6- 1.2m/s) TV Albino (0.4-1.0m/s) : :MV E Albino (0.8-1.0m/s)MV A Albino (0.3-1.0m/s)LVOT Albino (0.7-1.2m/s) Asc Ao Albino ( 0.9-1.8m/s) : + + Doppler Measurements \T\ Calculations TR max albino: 515.8 cm/sec TR max P.4 mmHg RAP systole: 20.0 mmHg RVSP(TR): 126.4 mmHg Left Ventricle The left ventricle is normal in size. There is normal left ventricular wall thickness. Ejection Fraction = 55%. Flattened septum is consistent with RV pressure/volume overload. Right Ventricle The right ventricle is severely dilated. The right ventricular systolic function is severely reduced. Tricuspid Valve There is severe tricuspid regurgitation. Right ventricular systolic pressure is 126mmHg. There is Doppler evidence for severe pulmonary hypertension. Conclusion Limited echocardiogram to reassess LVFX abd RT HT pressures. 1. This is a limited echocardiogram to evaluate LVEF and pulmonary artery pressure. 2. The left ventricle is normal in size. Ejection Fraction = 55%. Flattened septum is consistent with RV pressure/volume overload. 3. The right ventricle is severely dilated. The right ventricular systolic function is severely reduced. 4. There is Doppler evidence for severe pulmonary hypertension. Right ventricular systolic pressure is 126mmHg. 5. When compared to the 09/27/16 study. There is no significant change. Final Reading Physician: Shorty Leblanc MD electronically signed on 11/01/2016 11:08 AM Ordering Physician: Little Vaughn Performed By: Lenka Matute
[2016-11-01] MEDS: ASCORBIC ACID 500 MG TAB PO SCH ×2 (12:36→21:14)
[2016-11-01] MEDS: PANTOPRAZOLE SODIUM 40 MG TAB PO SCH (12:36)
[2016-11-01] MEDS: FERRO-SEQUELS 65 MG TAB.ER PO SCH ×2 (12:36→18:16)
[2016-11-01 13:10] LABS: ANION GAP 9 mEq/L (8-16); CALCIUM 9.4 mg/dL (8.5-10.4); CARBON DIOXIDE 25 mEq/l (22-31); CHLORIDE 84 mEq/L (97-110); GLOMERULAR FILTRATION RATE > 60; GLUCOSE 76 mg/dL (70-100); POTASSIUM 5.2 mEq/L (3.5-5.2)
[2016-11-01 13:42] LABS: SODIUM 118 mEq/L (134-144)
--- NOTE | 2016-11-01 14:19 | PDINTPN ---
Literacy Teacher Progress Note Assessment/Plan: Assessment/plan: 81 M with end-stage pulmonary hypertension with cor pulmonale admitted 10/31 with acute on chronic hyponatremia. He has been counselled to enter hospice on numerous times since at least 04/2016, but has adamantly declined, including on a recent admission at [facility] where aggressive diuresis was unsuccessful in diminishing his excessive oxygen requirement. 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 Agree with fluid restriction to improve sodium at <8-10 mEq in first 24 hours and <18 mEq in first 48 hours. He was (not inappropriately) thought to be hypovolemic from excess diuretic therapy so was given IVF on admission, which, expectedly raised his sodium some , then decreased it. Renal following and primarily managing, including with intermittent short runs of 3% saline. * Pulmonary hypertension- this is multifactorial resulting from his vague ILD and FERN. He has been evaluated at who reluctantly tried an ERA in 04/2016, but that resulted in worsening pulmonary edema and hypoxemia. He remains on Revatio which he said he has been taking for about 5 years. I agree with that there is no role for more advanced PH therapy such as prostaglandin analogues, endothelin antagonists, guanylate cyclase stimulators, or other PDEs. His prognosis is extremely poor from this perspective. * Severe hypoxemia- he reports more comfort with a NRB mask, so we will attempt to reduce the flow rate on the vapotherm. I anticipate a challenge arranging home oxygen at this level. * Bigeminy- discussed in detail with cards- he has had this rhythm for quite sometime per record review, and his PVCs may actually assist LV filling, which is impaired by his massive RV. * Dig toxicity- held for now. No digibind for now. * FERN- currently untreated * DNR- he remains a limited DNR- no CPR, but would allow ventilator for a limited time. I discussed this with him briefly this AM and told him I agree with the hospice plan, but we did not directly discuss the value of intubation should he require it. Will continue this discussion to include his . * He is critically ill and has a very poor prognosis * Subjective: Stable overnight despite needing 35 lpm + 100% on vapotherm and NRB. No events; denies confusion, LH, CAREY, f/c/s Objective: Vital Signs Temp Pulse Resp BP Pulse Ox 36.3 C 80 18 108/50 L 96 11/01/16 12:00 11/01/16 12:00 11/01/16 12:00 11/01/16 12:00 11/01/16 12:00 Microbiology 10/31/16 02:20 Blood Panel (PCR) - Final Blood Staph Coagulase Negative Laboratory Results 11/01/16 04:30 11/01/16 12:30 10/31/16 11/01/16 11/02/16 05:59 05:59 05:59 Intake Total 666 2106 240 Output Total 125 715 400 Balance 541 1391 -160 PT 14.5 SEC (12.0-15.0) 10/30/16 19:36 INR 1.14 (0.83-1.16) 10/30/16 19:36 Physical Exam - Physical Exam General Appearance: alert, no apparent distress EENT: PERRL/EOMI Neck: full range of motion, supple Respiratory: lungs clear, normal breath sounds, No respiratory distress, No rales Cardiac/Chest: normal peripheral pulses, regular rate, rhythm, edema (mild at the hip), JVD, systolic murmur Abdomen: normal bowel sounds, non-tender, soft Skin: normal color, warm/dry, No cyanosis Lymphatic: no adenopathy Extremities: No pedal edema, No calf tenderness Neuro/Psych: alert, normal mood/affect, oriented x 3 ICD10 Worksheet Patient Problems: Problems Problem Status Onset Congestive heart failure Acute Hyponatremia Acute Hypoxia Acute Respiratory distress, acute Acute Congestive cardiomyopathy Active Acute exacerbation of congestive heart failure Acute Atrial fibrillation Acute Chronic Disease Mgmt/Transitional Care Acute Fluid overload Acute Hyponatremia Acute MRSA (methicillin resistant staph aureus) culture positive Acute 10/02/15 Pulmonary HTN Acute Renal insufficiency Acute
--- NOTE | 2016-11-01 15:07 | SOAPPROG ---
SOAP Progress Note Assessment/Plan: Assessment: hypotension hyponatremia hyperkalemia ? primary adrenal issue Plan: give another 30ccof 3% saline continue fluid restriction repeat TSH and Free T4 cosyntropin stim test in the AM repeat urinary chemistry tests 11/01/16 15:04 Subjective: tired at bedside +SOB no cp nausea or vomiting appetite not great Objective: Vital Signs Temp Pulse Resp BP Pulse Ox 36.3 C 80 18 108/50 L 96 11/01/16 12:00 11/01/16 12:00 11/01/16 12:00 11/01/16 12:00 11/01/16 12:00 Microbiology 10/31/16 02:20 Blood Panel (PCR) - Final Blood Staph Coagulase Negative Laboratory Results 11/01/16 04:30 11/01/16 12:30 10/31/16 11/01/16 11/02/16 05:59 05:59 05:59 Intake Total 666 2106 240 Output Total 125 715 400 Balance 541 1391 -160 PT 14.5 SEC (12.0-15.0) 10/30/16 19:36 INR 1.14 (0.83-1.16) 10/30/16 19:36 Physical Exam - Physical Exam General Appearance: other (ill appearing) Respiratory: rales, rhonchi, No wheezing Cardiac/Chest: regular rate, rhythm, edema, No friction rub Abdomen: normal bowel sounds, non-tender, soft Extremities: pedal edema Neuro/Psych: alert, oriented x 3 ICD10 Worksheet Patient Problems: Problems Problem Status Onset Congestive heart failure Acute Hyponatremia Acute Hypoxia Acute Respiratory distress, acute Acute Congestive cardiomyopathy Active Acute exacerbation of congestive heart failure Acute Atrial fibrillation Acute Chronic Disease Mgmt/Transitional Care Acute Fluid overload Acute Hyponatremia Acute MRSA (methicillin resistant staph aureus) culture positive Acute 10/02/15 Pulmonary HTN Acute Renal insufficiency Acute
--- NOTE | 2016-11-01 15:13 | HOSPPROG ---
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 (poor renal perfusion due to low cardiac output) -maintains fluid restriction 1500 cc daily at home - now 800cc -intermittent 3% saline per renal -correcting very slowly * End stage pulmonary HTN - huge RA/RV compressing output from LV -physiologically similar to tamponade (d/w with Dr. Leblanc) -hospice recommended and declined -continue Revatio * Chronic respiratory failure due to pulm HTN and ILD -15-20L baseline * Lung cancer s/p RUL resection * Digoxin toxicity -hold digoxin * Afib * CAD/stent -ASA/Lipitor * Bigeminy -longstanding -ECHO reviewed personally with Dr. Leblanc -PVCs actually have better filling than normal sinus beats Subjective: no complaints. Objective: Vital Signs Temp Pulse Resp BP Pulse Ox 36.3 C 80 18 108/50 L 96 11/01/16 12:00 11/01/16 12:00 11/01/16 12:00 11/01/16 12:00 11/01/16 12:00 Microbiology 10/31/16 02:20 Blood Panel (PCR) - Final Blood Staph Coagulase Negative Laboratory Results 11/01/16 04:30 11/01/16 12:30 10/31/16 11/01/16 11/02/16 05:59 05:59 05:59 Intake Total 666 2106 240 Output Total 125 715 400 Balance 541 1391 -160 PT 14.5 SEC (12.0-15.0) 10/30/16 19:36 INR 1.14 (0.83-1.16) 10/30/16 19:[address] Leblanc - massive RA dilation - no room for LV to pump case d/w Dr. Galdamez - end stage - there are no options, prognosis very poor - Physical Exam Constitutional: no apparent distress, appears nourished, not in pain Cardiovascular: regular rate and rhythym, no murmur, rub, or gallop Respiratory: no respiratory distress, inspiratory crackles, No expiratory wheeze , No rhonchi Gastrointestinal: normoactive bowel sounds, soft, non-tender abdomen, no palpable masses Skin: no rashes or abrasions, no fluctuance, no induration Neurologic: AAOx3, sensation intact bilaterally Psychiatric: interacting appropriately, not anxious, not encephalopathic, thought process linear ICD10 Worksheet Patient Problems: Problems Problem Status Onset Congestive heart failure Acute Hyponatremia Acute Hypoxia Acute Respiratory distress, acute Acute Congestive cardiomyopathy Active Acute exacerbation of congestive heart failure Acute Atrial fibrillation Acute Chronic Disease Mgmt/Transitional Care Acute Fluid overload Acute Hyponatremia Acute MRSA (methicillin resistant staph aureus) culture positive Acute 10/02/15 Pulmonary HTN Acute Renal insufficiency Acute
[2016-11-01 17:10] LABS: ANION GAP 7 mEq/L (8-16); CALCIUM 9.4 mg/dL (8.5-10.4); CARBON DIOXIDE 28 mEq/l (22-31); CHLORIDE 83 mEq/L (97-110); GLOMERULAR FILTRATION RATE > 60; GLUCOSE 126 mg/dL (70-100); POTASSIUM 5.1 mEq/L (3.5-5.2)
[2016-11-01 17:14] LABS: SODIUM 118 mEq/L (134-144)
[2016-11-01] MEDS ORDERED: SODIUM Cl 3% 500 ML IV SCH (17:45)
--- NOTE | 2016-11-01 17:57 | SOAPPROG ---
SOAP Progress Note Assessment/Plan: 1. CAD - Pt has known CAD and is s/p PCI of his LCX in 2007. His last angiographic evaluation in 2010 demonstrated no significant obstructive disease. Pt denies symptoms of angina. EKG with no acute ST changes. --> Continue asa and lipitor --> No BB or BUD secondary to low BP 2. A-fib - Pt has chronic A-fib. He is managed with a rate control and anticoagulation strategy. He is not on full anticoagulation secondary to bleeding risk. He is not on BB or CC jacek secondary to low BP. Rate has been well controlled with digoxin. However, his digoxin level increased with his most recent event. Will hold digoxin for now and continue to follow. Consider resuming at half dose if heart rates increase. 3. PVCs - Pt has frequent PVCs on monitoring. He has a history of frequent PVCs up to 20,000 per day. He is asymptomatic with these and there has not been a drop in his LVEF related to these. Will continue to follow 4. Pulmonary HTN - Pt has severe pulmonary HTN secondary to pulmonary fibrosis. His pulmonary artery pressures are over 100 mmHg. 5. Cardiac output - Pt likely has reduced cardiac output secondary to impaired filling from his pulmonary HTN and septal shift into the LV. Agree with IVF to improve pre-load. However, this will likely result in return of edema. Subjective: No chest pain dyspnea improved No orthopnea mild edema improved mentation Objective: Vital Signs Temp Pulse Resp BP Pulse Ox 36.3 C 85 30 H 102/44 L 94 11/01/16 12:00 11/01/16 16:00 11/01/16 16:00 11/01/16 16:00 11/01/16 16:00 Microbiology 10/31/16 02:20 Blood Panel (PCR) - Final Blood Staph Coagulase Negative Laboratory Results 11/01/16 04:30 11/01/16 16:20 10/31/16 11/01/16 11/02/16 05:59 05:59 05:59 Intake Total 666 2106 480 Output Total 125 715 500 Balance 541 1391 -20 PT 14.5 SEC (12.0-15.0) 10/30/16 19:36 INR 1.14 (0.83-1.16) 10/30/16 19:36 Physical Exam - Physical Exam General Appearance: alert, mild distress Respiratory: crackles Cardiac/Chest: systolic murmur, other (irregular rhythm) Abdomen: non-tender, soft Extremities: pedal edema Neuro/Psych: alert ICD10 Worksheet Patient Problems: Problems Problem Status Onset Congestive heart failure Acute Hyponatremia Acute Hypoxia Acute Respiratory distress, acute Acute Congestive cardiomyopathy Active Acute exacerbation of congestive heart failure Acute Atrial fibrillation Acute Chronic Disease Mgmt/Transitional Care Acute Fluid overload Acute Hyponatremia Acute MRSA (methicillin resistant staph aureus) culture positive Acute 10/02/15 Pulmonary HTN Acute Renal insufficiency Acute
[2016-11-01] MEDS: ATORVASTATIN CALCIUM 20 MG TAB PO SCH (21:14)
[2016-11-01] MEDS: ASPIRIN 81 MG CHEWABLE TAB PO SCH (21:14)
[2016-11-02 00:47] LABS: ANION GAP 6 mEq/L (8-16); CALCIUM 9.2 mg/dL (8.5-10.4); CARBON DIOXIDE 28 mEq/l (22-31); CHLORIDE 89 mEq/L (97-110); GLOMERULAR FILTRATION RATE > 60; GLUCOSE 134 mg/dL (70-100); POTASSIUM 4.9 mEq/L (3.5-5.2); SODIUM 123 mEq/L (134-144)
[2016-11-02] MEDS ORDERED: COSYNTROPIN 0.25 MG/2 ML SYRINGE IVP ONE (06:00)
[2016-11-02 06:12] LABS: ANION GAP 7 mEq/L (8-16); CALCIUM 9.1 mg/dL (8.5-10.4); CARBON DIOXIDE 26 mEq/l (22-31); CHLORIDE 89 mEq/L (97-110); DIGOXIN 1.6 ng/mL (0.8-2.0); GLOMERULAR FILTRATION RATE > 60; GLUCOSE 106 mg/dL (70-100); POTASSIUM 4.9 mEq/L (3.5-5.2); SODIUM 122 mEq/L (134-144)
[2016-11-02 06:40] LABS: CORTISOL-AM 24.4 ug/dL (4.5-22.7)
--- NOTE | 2016-11-02 09:32 | SOAPPROG ---
SOAP Progress Note Assessment/Plan: Assessment:Plan: Hyponatremia-likely related to relative arterial underfilling -low FeNa -Echo with septal flattening consistent with RV pressure/volume overload -improved with 3% -will follow off IVF today, will not plan to give either saline or 3% today -cortisol level not low, stim test appears normal -patient desire liberalization of fluid restriction -I have increased this from 800 to 1200 daily 11/02/16 09:29 Subjective: unable to tolerate fluid restriction Objective: Vital Signs Temp Pulse Resp BP Pulse Ox 36.4 C 73 20 103/59 L 96 11/01/16 21:05 11/02/16 06:00 11/02/16 06:00 11/02/16 06:00 11/02/16 06:00 Microbiology 10/31/16 02:20 Blood Panel (PCR) - Final Blood Staph Coagulase Negative Laboratory Results 11/01/16 04:30 11/02/16 05:45 11/01/16 11/02/16 11/03/16 05:59 05:59 05:59 Intake Total 2106 1121 100 Output Total 715 675 Balance 1391 446 100 PT 14.5 SEC (12.0-15.0) 10/30/16 19:36 INR 1.14 (0.83-1.16) 10/30/16 19:36 Physical Exam - Physical Exam General Appearance: alert, no apparent distress EENT: normal ENT inspection Neck: normal inspection Respiratory: lungs clear, decreased breath sounds (at bases) Cardiac/Chest: bradycardia, systolic murmur, other (irregular) Abdomen: normal bowel sounds, non-tender, soft Extremities: No swelling ICD10 Worksheet Patient Problems: Problems Problem Status Onset Congestive heart failure Acute Hyponatremia Acute Hypoxia Acute Respiratory distress, acute Acute Congestive cardiomyopathy Active Acute exacerbation of congestive heart failure Acute Atrial fibrillation Acute Chronic Disease Mgmt/Transitional Care Acute Fluid overload Acute Hyponatremia Acute MRSA (methicillin resistant staph aureus) culture positive Acute 10/02/15 Pulmonary HTN Acute Renal insufficiency Acute
[2016-11-02] MEDS: SILDENAFIL CITRATE 20 MG TAB PO SCH ×3 (09:39→21:11)
[2016-11-02] MEDS: ENOXAPARIN 40 MG/0.4 ML SYR SC SCH (09:39)
[2016-11-02] MEDS: FERRO-SEQUELS 65 MG TAB.ER PO SCH ×2 (12:20→18:04)
[2016-11-02] MEDS: PANTOPRAZOLE SODIUM 40 MG TAB PO SCH (12:20)
[2016-11-02] MEDS: ASCORBIC ACID 500 MG TAB PO SCH ×2 (12:20→21:11)
--- NOTE | 2016-11-02 14:03 | SOAPPROG ---
SOAP Progress Note Assessment/Plan: 1. CAD - Pt has known CAD and is s/p PCI of his LCX in 2007. His last angiographic evaluation in 2010 demonstrated no significant obstructive disease. Pt denies symptoms of angina. EKG with no acute ST changes. --> Continue asa and lipitor --> No BB or BUD secondary to low BP 2. A-fib - Pt has chronic A-fib. He is managed with a rate control and anticoagulation strategy. He is not on full anticoagulation secondary to bleeding risk. He is not on BB or CC jacek secondary to low BP. Rate has been well controlled with digoxin. However, his digoxin level increased with his most recent event. Will hold digoxin for now and continue to follow. Consider resuming at half dose if heart rates increase. If heart rate does not increase would not resume digoxin given risk digoxin tox. 3. PVCs - Pt has frequent PVCs on monitoring. He has a history of frequent PVCs up to 20,000 per day. He is asymptomatic with these and there has not been a drop in his LVEF related to these. Will continue to follow 4. Pulmonary HTN - Pt has severe pulmonary HTN secondary to pulmonary fibrosis. His pulmonary artery pressures are over 100 mmHg. 5. Cardiac output - Pt likely has reduced cardiac output secondary to impaired filling from his pulmonary HTN and septal shift into the LV. Agree with IVF to improve pre-load. However, this will likely result in return of edema. 11/02/16 14:00 Subjective: No chest pain poor nights sleep up in chair Objective: Vital Signs Temp Pulse Resp BP Pulse Ox 36.4 C 73 15 112/57 L 97 11/01/16 21:05 11/02/16 11:59 11/02/16 11:59 11/02/16 11:59 11/02/16 11:59 Microbiology 10/31/16 02:20 Blood Panel (PCR) - Final Blood Staph Coagulase Negative Laboratory Results 11/01/16 04:30 11/02/16 12:25 11/01/16 11/02/16 11/03/16 05:59 05:59 05:59 Intake Total 2106 1121 100 Output Total 715 675 200 Balance 1391 446 -100 PT 14.5 SEC (12.0-15.0) 10/30/16 19:36 INR 1.14 (0.83-1.16) 10/30/16 19:36 Physical Exam - Physical Exam General Appearance: alert, mild distress Respiratory: crackles, No wheezing Cardiac/Chest: systolic murmur, irregularly irregular Abdomen: non-tender, soft Skin: cyanosis Extremities: pedal edema Neuro/Psych: alert ICD10 Worksheet Patient Problems: Problems Problem Status Onset Congestive heart failure Acute Hyponatremia Acute Hypoxia Acute Respiratory distress, acute Acute Congestive cardiomyopathy Active Acute exacerbation of congestive heart failure Acute Atrial fibrillation Acute Chronic Disease Mgmt/Transitional Care Acute Fluid overload Acute Hyponatremia Acute MRSA (methicillin resistant staph aureus) culture positive Acute 10/02/15 Pulmonary HTN Acute Renal insufficiency Acute
--- NOTE | 2016-11-02 14:08 | HOSPPROG ---
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 (poor renal perfusion due to low cardiac output) -maintains fluid restriction 1500 cc daily at home - now 1200cc -s/p 3% saline per renal -monitor without further IVF -unclear what baseline sodium level will be acceptable * End stage pulmonary HTN - huge RA/RV compressing output from LV -RVSP > 120 - hospice recommended and declined -continue Revatio * Acute on chronic respiratory failure due to pulm HTN and ILD -15-20L baseline - weaning O2 * Lung cancer s/p RUL resection * Digoxin toxicity -hold digoxin -consider restart every other day * Afib * CAD/stent -ASA/Lipitor Subjective: no new complaints. Unhappy about fluid restriction. Seems to have poor insight into how sick he is. "Well I've done fine for 79 years doing it [address] other way" Objective: Vital Signs Temp Pulse Resp BP Pulse Ox 36.4 C 73 15 112/57 L 97 11/01/16 21:05 11/02/16 11:59 11/02/16 11:59 11/02/16 11:59 11/02/16 11:59 Microbiology 10/31/16 02:20 Blood Panel (PCR) - Final Blood Staph Coagulase Negative Laboratory Results 11/01/16 04:30 11/02/16 12:25 11/01/16 11/02/16 11/03/16 05:59 05:59 05:59 Intake Total 2106 1121 100 Output Total 715 675 200 Balance 1391 446 -100 PT 14.5 SEC (12.0-15.0) 10/30/16 19:36 INR 1.14 (0.83-1.16) 10/30/16 19:36 d/w Dr. Galdamez ICU rounds - prognosis is poor, patient and seem to be in denial tele reviewed - NSR - Physical Exam Constitutional: no apparent distress, appears nourished, not in pain Cardiovascular: regular rate and rhythym, no murmur, rub, or gallop Respiratory: no respiratory distress, inspiratory crackles, No expiratory wheeze , No rhonchi Gastrointestinal: normoactive bowel sounds, soft, non-tender abdomen, no palpable masses Skin: no rashes or abrasions, no fluctuance, no induration Neurologic: AAOx3, sensation intact bilaterally Psychiatric: flat affect, poor insight, poor judgement, No encephalopathic, No agitated ICD10 Worksheet Patient Problems: Problems Problem Status Onset Congestive heart failure Acute Hyponatremia Acute Hypoxia Acute Respiratory distress, acute Acute Congestive cardiomyopathy Active Acute exacerbation of congestive heart failure Acute Atrial fibrillation Acute Chronic Disease Mgmt/Transitional Care Acute Fluid overload Acute Hyponatremia Acute MRSA (methicillin resistant staph aureus) culture positive Acute 10/02/15 Pulmonary HTN Acute Renal insufficiency Acute
--- NOTE | 2016-11-02 14:09 | PDINTPN ---
Interventionist Progress Note Assessment/Plan: Assessment/plan: 81 M with end-stage pulmonary hypertension with cor pulmonale admitted 10/31 with acute on chronic hyponatremia. He has been counselled to enter hospice on numerous times since at least 04/2016, but has adamantly declined, including on a recent admission at [facility] where aggressive diuresis was unsuccessful in diminishing his excessive oxygen requirement. 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 Agree with fluid restriction to improve sodium at <8-10 mEq in first 24 hours and <18 mEq in first 48 hours. Sodium improved today with 3% saline to 123. Patient requested increase in fluid restriction from 800-1200 ml/day. Holding IVF as well per renal. Baseline appears to be upper 120's to 130's. * Pulmonary hypertension- this is multifactorial resulting from his vague ILD and untreated FERN. He has been evaluated at who reluctantly tried an ERA in , but that resulted in worsening pulmonary edema and hypoxemia. He remains on Revatio (PDE inhibitor) which he said he has been taking for about 5 years. I agree with that there is no role for more advanced PH therapy such as prostaglandin analogues, endothelin antagonists, guanylate cyclase stimulators, or other PDEs. His prognosis is extremely poor from this perspective. * Severe hypoxemia- He uses high flow concentrators at home and is likely about at baseline. Keep his sats >92% for now * Bigeminy- discussed in detail with cards- he has had this rhythm for quite sometime per record review, and his PVCs may actually assist LV filling, which is impaired by his massive RV. * Dig toxicity- Maintaining a slow rhythm. Discussed with Dr. Leblanc- if his rate starts to rise will resume digoxin at half dose. * FERN- currently untreated * DNR- he remains a limited DNR- no CPR, but would allow ventilator for a "limited" time. I offered additional discussion about DNR status and hospice care this AM with his present. They are clearly not interested in that approach, but may not fully understand what his end of life is likely to look like despite lengthy discussions by many providers long before I became involved. * He is critically ill and has a very poor prognosis * 11/02/16 14:00 Subjective: Feels well, no complaints. O2 requirement remains high. Objective: Vital Signs Temp Pulse Resp BP Pulse Ox 36.4 C 73 15 112/57 L 97 11/01/16 21:05 11/02/16 11:59 11/02/16 11:59 11/02/16 11:59 11/02/16 11:59 Microbiology 10/31/16 02:20 Blood Panel (PCR) - Final Blood Staph Coagulase Negative Laboratory Results 11/01/16 04:30 11/02/16 12:25 11/01/16 11/02/16 11/03/16 05:59 05:59 05:59 Intake Total 2106 1121 100 Output Total 715 675 200 Balance 1391 446 -100 PT 14.5 SEC (12.0-15.0) 10/30/16 19:36 INR 1.14 (0.83-1.16) 10/30/16 19:36 Physical Exam - Physical Exam General Appearance: alert, no apparent distress EENT: PERRL/EOMI Neck: full range of motion, supple Respiratory: lungs clear, normal breath sounds, No respiratory distress Cardiac/Chest: regular rate, rhythm, systolic murmur Abdomen: normal bowel sounds, non-tender, soft, No distended Skin: normal color, warm/dry, No cyanosis Lymphatic: no adenopathy Extremities: No pedal edema Neuro/Psych: alert, normal mood/affect, oriented x 3 ICD10 Worksheet Patient Problems: Problems Problem Status Onset Congestive heart failure Acute Hyponatremia Acute Hypoxia Acute Respiratory distress, acute Acute Congestive cardiomyopathy Active Acute exacerbation of congestive heart failure Acute Atrial fibrillation Acute Chronic Disease Mgmt/Transitional Care Acute Fluid overload Acute Hyponatremia Acute MRSA (methicillin resistant staph aureus) culture positive Acute 10/02/15 Pulmonary HTN Acute Renal insufficiency Acute
--- NOTE | 2016-11-02 15:59 | PDPCPN ---
Palliative Care Progress Note Assessment/Plan: Referring provider: Dr Hill Reason for consult: Complex medical decision making Symptom control HPI: Bruno Glasgow (Doug) is a 81 yo male with PMH CAD, CHF, a fib, severe pul HTN, and pul fibrosis admitted to the hospital with critical hyponatremia. ON admission Na 115 now up to 122 2/2 poor renal perfusion from low cardiac output 2/2 end stage pul HTN. At home on 15-10 L of oxygen, now requiring vapotherm at 35 L. Palliative care consulted for complex medical decision making. Spoke with Antolin and his Tory at the bedside this morning. They state they understand his medical condition with severe pul HTN affecting his other organs. They have been told many times Antolin has "6 months or less to live" and the first time occurred 2 years ago. They met with hospice last year after he was hospitalized and told he only had 1 month to live. Antolin states when the hospice nurse came to see him at home he stated "You don't need hospice!". They feel they have been told multiple times he is dying and yet he lives with a good quality of life. They have experience with hospice care and feel is may be an option in the future but for now it is not in line with their wishes. Tory states Antolin has had "blips" in the past and has always returned back to baseline. They feel this hospitalization is no different but both acknowledge Antolin is closer to end of life and could at any moment. They are prepared for this and Antolin has no fears of dying. They feel he is mentally still very clear and would want continued hospitalizations. We discussed the burden of hospitalizations may outweigh the benefit and that he could choose hospice care at any moment. Tory shared her concerns about hospice including not being able to have medicare pay for continued care for his other aliments and only focus on his hospice dx of end stage pul HTN. We discussed the role of hospice care at home but they both feel there is no need for that level of support yet and what Antolin needs the most at this time is continued medical interventions with his various specialists to stabilize his disease. Assessment: Physical: - Pain: none - tylenol PRN - Dyspnea: on occasion - oxygen per pul - fan can help with subjective dyspnea - opiates can help with dyspnea as well but Antolin has hallucinations with morphine so would recommend either dilaudid or fentanyl in very low doses if needed Emotional/psychological: has a lot of support from and family. Advanced Care Planning: Is patient decisional?: Yes Code Status: DNR POA: Tory is MDPANGLE. Plan: Does not feel hospitalization is a burden. Has spoken with hospice in the past and is not currently interested in hospice care. Has been active with [facility] in the past and will continue this upon discharge with [facility]. Subjective: I feel ok Objective: Social History: to Tory for 47 years. 2 sons involved. Worked in [employer]. Enjoys working on his computer and watching movies. Medication list reviewed ROS: General: fatigue, weakness ENT: dry mouth Resp: dyspnea, cough GI: negative : negative MS: negative Skin: negative Neuro: negative Psych: negative Functional assessment: PPS: 50% Functional status: needs some assistance with ADLs. Vital Signs Temp Pulse Resp BP Pulse Ox 36.4 C 81 22 H 102/41 L 89 L 11/01/16 21:05 11/02/16 14:00 11/02/16 14:00 11/02/16 14:00 11/02/16 14:00 Microbiology 10/31/16 02:20 Blood Panel (PCR) - Final Blood Staph Coagulase Negative Laboratory Results 11/01/16 04:30 11/02/16 12:25 11/01/16 11/02/16 11/03/16 05:59 05:59 05:59 Intake Total 2106 1121 100 Output Total 715 675 200 Balance 1391 446 -100 PT 14.5 SEC (12.0-15.0) 10/30/16 19:36 INR 1.14 (0.83-1.16) 10/30/16 19:36 Physical Exam - Physical Exam General Appearance: alert, no apparent distress Respiratory: No respiratory distress, No accessory muscle use Skin: normal color, warm/dry Extremities: No pedal edema Neuro/Psych: alert, oriented x 3 ICD10 Worksheet Patient Problems: Problems Problem Status Onset Congestive heart failure Acute Hyponatremia Acute Hypoxia Acute Palliative care encounter Acute Respiratory distress, acute Acute Congestive cardiomyopathy Active Acute exacerbation of congestive heart failure Acute Atrial fibrillation Acute Chronic Disease Mgmt/Transitional Care Acute Fluid overload Acute Hyponatremia Acute MRSA (methicillin resistant staph aureus) culture positive Acute 10/02/15 Pulmonary HTN Acute Renal insufficiency Acute - ICD10 Problem Qualifiers (1) Palliative care encounter
[2016-11-02] MEDS: ATORVASTATIN CALCIUM 20 MG TAB PO SCH (21:11)
[2016-11-02] MEDS: ASPIRIN 81 MG CHEWABLE TAB PO SCH (21:11)
[2016-11-03 06:42] VITALS: TEMP 97.5
[2016-11-03 09:56] LABS: ANION GAP 5 mEq/L (8-16); CALCIUM 9.1 mg/dL (8.5-10.4); CARBON DIOXIDE 28 mEq/l (22-31); CHLORIDE 87 mEq/L (97-110); CREATININE 1.2 mg/dL (0.7-1.3); GLOMERULAR FILTRATION RATE 58; GLUCOSE 87 mg/dL (70-100); SODIUM 120 mEq/L (134-144)
[2016-11-03] MEDS: SILDENAFIL CITRATE 20 MG TAB PO SCH ×3 (11:05→22:03)
[2016-11-03] MEDS: ENOXAPARIN 40 MG/0.4 ML SYR SC SCH (11:05)
[2016-11-03] MEDS: ASCORBIC ACID 500 MG TAB PO SCH (11:56)
[2016-11-03] MEDS: FERRO-SEQUELS 65 MG TAB.ER PO SCH ×2 (11:57→17:30)
[2016-11-03] MEDS: PANTOPRAZOLE SODIUM 40 MG TAB PO SCH (11:57)
[2016-11-03] MEDS ORDERED: FUROSEMIDE 40 MG/4 ML VIAL IVP ONE (11:57)
--- NOTE | 2016-11-03 12:04 | SOAPPROG ---
SOAP Progress Note Assessment/Plan: Assessment: Hyponatremia: mild SIADH, in setting of R sided heart failure. He is typically in the high 120s, is now asymptomatic at sodium around 121, which has been stable since yesterday. Did improve from mid-110s with 3% saline. An appropriate goal for him would be around the mid-120s. - Will continue fluid restriction of 1200ml. - Will not give additional IVFs at this time. - Encourage PO intake, continue Nepro 3x today. - Will give Lasix 40mg IV x1 today and see if that helps. - Will continue to monitor sodium BID. Hyperkalemia: K still 5.0. - May improve with Lasix as above. - Will continue renal diet for now. Subjective: No acute events overnight. Pt is still struggling with 1200ml fluid restriction. Objective: Vital Signs Temp Pulse Resp BP Pulse Ox 36.4 C 67 19 93/50 L 92 11/03/16 06:00 11/03/16 06:00 11/03/16 06:00 11/03/16 06:00 11/03/16 06:00 Microbiology 10/31/16 02:20 Blood Panel (PCR) - Final Blood Staph Coagulase Negative Laboratory Results 11/01/16 04:30 11/03/16 09:29 11/02/16 11/03/16 11/04/16 05:59 05:59 05:59 Intake Total 1121 1050 Output Total 675 350 120 Balance 446 700 -120 PT 14.5 SEC (12.0-15.0) 10/30/16 19:36 INR 1.14 (0.83-1.16) 10/30/16 19:36 General: alert and oriented, no acute distress Eyes: EOMI, PERRL OP: CLear CV: RRR Resp: nonlabored respirations on NC Abd: Soft, NT/ND Ext: trace edema BLE Neuro: CN II-XII grossly intact, no asterixis Psych: Cooperative, appropriate mood and affect ICD10 Worksheet Patient Problems: Problems Problem Status Onset Congestive heart failure Acute Hyponatremia Acute Hypoxia Acute Palliative care encounter Acute Respiratory distress, acute Acute Congestive cardiomyopathy Active Acute exacerbation of congestive heart failure Acute Atrial fibrillation Acute Chronic Disease Mgmt/Transitional Care Acute Fluid overload Acute Hyponatremia Acute MRSA (methicillin resistant staph aureus) culture positive Acute 10/02/15 Pulmonary HTN Acute Renal insufficiency Acute
--- NOTE | 2016-11-03 13:35 | PDINTPN ---
[employer] Technician Progress Note Assessment/Plan: Assessment/plan: 81 M with end-stage pulmonary hypertension with cor pulmonale admitted 10/31 with acute on chronic hyponatremia. He has been counselled to enter hospice on numerous times since at least 04/2016, but has adamantly declined, including on a recent admission at [facility] where aggressive diuresis was unsuccessful in diminishing his excessive oxygen requirement. 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 Agree with fluid restriction to improve sodium at <8-10 mEq in first 24 hours and <18 mEq in first 48 hours. Reduced restriction on fluid restriction may have resulted in plateau. Consider diuretic to improve water excretion. Baseline appears to be upper 120's to 130' s. * Pulmonary hypertension- this is multifactorial resulting from his vague ILD and untreated FERN. He has been evaluated at who reluctantly tried an ERA in , but that resulted in worsening pulmonary edema and hypoxemia. He remains on Revatio (PDE inhibitor) which he said he has been taking for about 5 years. I agree with that there is no role for more advanced PH therapy such as prostaglandin analogues, endothelin antagonists, guanylate cyclase stimulators, or other PDEs. His prognosis is extremely poor from this perspective. * Severe hypoxemia- He uses high flow concentrators at home and is likely about at baseline. Keep his sats >92% for now * Bigeminy- discussed in detail with cards- he has had this rhythm for quite sometime per record review, and his PVCs may actually assist LV filling, which is impaired by his massive RV. * Dig toxicity- Maintaining a slow rhythm. Discussed with Dr. Leblanc- if his rate starts to rise will resume digoxin at half dose, but today it remains the same with a normal Dig level. * FERN- currently untreated * DNR- he remains a limited DNR- no CPR, but would allow ventilator for a "limited" time. * He is critically ill and has a very poor prognosis * 11/02/16 14:00 11/03/16 13:33 Subjective: No complaints today Objective: Vital Signs Temp Pulse Resp BP Pulse Ox 36.4 C 67 19 93/50 L 92 11/03/16 06:00 11/03/16 06:00 11/03/16 06:00 11/03/16 06:00 11/03/16 06:00 Microbiology 10/31/16 02:20 Blood Panel (PCR) - Final Blood Staph Coagulase Negative Laboratory Results 11/01/16 04:30 11/03/16 09:29 11/02/16 11/03/16 11/04/16 05:59 05:59 05:59 Intake Total 1121 1050 Output Total 675 350 120 Balance 446 700 -120 PT 14.5 SEC (12.0-15.0) 10/30/16 19:36 INR 1.14 (0.83-1.16) 10/30/16 19:36 Physical Exam - Physical Exam General Appearance: alert, no apparent distress EENT: PERRL/EOMI Neck: supple Respiratory: lungs clear, normal breath sounds, No respiratory distress, No rales, No rhonchi Cardiac/Chest: normal peripheral pulses, regular rate, rhythm, No edema Abdomen: normal bowel sounds, non-tender, soft, No distended Skin: warm/dry Lymphatic: no adenopathy Extremities: No pedal edema Neuro/Psych: alert, normal mood/affect, oriented x 3 ICD10 Worksheet Patient Problems: Problems Problem Status Onset Congestive heart failure Acute Hyponatremia Acute Hypoxia Acute Palliative care encounter Acute Respiratory distress, acute Acute Congestive cardiomyopathy Active Acute exacerbation of congestive heart failure Acute Atrial fibrillation Acute Chronic Disease Mgmt/Transitional Care Acute Fluid overload Acute Hyponatremia Acute MRSA (methicillin resistant staph aureus) culture positive Acute 10/02/15 Pulmonary HTN Acute Renal insufficiency Acute
--- NOTE | 2016-11-03 14:33 | SOAPPROG ---
SOAP Progress Note Assessment/Plan: 1. CAD - Pt has known CAD and is s/p PCI of his LCX in 2007. His last angiographic evaluation in 2010 demonstrated no significant obstructive disease. Pt denies symptoms of angina. EKG with no acute ST changes. --> Continue asa and lipitor --> No BB or BUD secondary to low BP 2. A-fib - Pt has chronic A-fib. He is managed with a rate control and anticoagulation strategy. He is not on full anticoagulation secondary to bleeding risk. He is not on BB or CC jacek secondary to low BP. His rate has been well controlled with digoxin. However, his digoxin level increased with his most recent event. His heart rate remains well controlled despite DC of digoxin. Will continue to follow. If rate remains well controlled off digoxin will not use given risk for tox. If rate increases will resume at half dose. 3. PVCs - Pt has frequent PVCs on monitoring. He has a history of frequent PVCs up to 20,000 per day. He is asymptomatic with these and there has not been a drop in his LVEF related to these. Will continue to follow 4. Pulmonary HTN - Pt has severe pulmonary HTN secondary to pulmonary fibrosis. His pulmonary artery pressures are over 100 mmHg. 5. Cardiac output - Pt likely has reduced cardiac output secondary to impaired filling from his pulmonary HTN and septal shift into the LV. Agree with IVF to improve pre-load. However, this will likely result in return of edema. Subjective: Tele - A-fib with frequent PVCs. HR well controlled off digoxin at this time. Objective: Vital Signs Temp Pulse Resp BP Pulse Ox 36.4 C 67 19 93/50 L 92 11/03/16 06:00 11/03/16 06:00 11/03/16 06:00 11/03/16 06:00 11/03/16 06:00 Microbiology 10/31/16 02:20 Blood Panel (PCR) - Final Blood Staph Coagulase Negative Laboratory Results 11/01/16 04:30 11/03/16 09:29 11/02/16 11/03/16 11/04/16 05:59 05:59 05:59 Intake Total 1121 1050 Output Total 675 350 120 Balance 446 700 -120 PT 14.5 SEC (12.0-15.0) 10/30/16 19:36 INR 1.14 (0.83-1.16) 10/30/16 19:36 ICD10 Worksheet Patient Problems: Problems Problem Status Onset Congestive heart failure Acute Hyponatremia Acute Hypoxia Acute Palliative care encounter Acute Respiratory distress, acute Acute Congestive cardiomyopathy Active Acute exacerbation of congestive heart failure Acute Atrial fibrillation Acute Chronic Disease Mgmt/Transitional Care Acute Fluid overload Acute Hyponatremia Acute MRSA (methicillin resistant staph aureus) culture positive Acute 10/02/15 Pulmonary HTN Acute Renal insufficiency Acute
--- NOTE | 2016-11-03 16:07 | HOSPPROG ---
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 (poor renal perfusion due to low cardiac output) -maintains fluid restriction 1500 cc daily at home - now 1200cc -s/p 3% saline per renal -IV lasix today - d/w Dr. Card -unclear what baseline sodium level will be acceptable for discharge * End stage pulmonary HTN - huge RA/RV compressing output from LV -RVSP > 120 - hospice recommended and declined -continue Revatio * Acute on chronic respiratory failure due to pulm HTN and ILD -15-20L baseline - weaning O2 * Lung cancer s/p RUL resection * Digoxin toxicity - evidence of renal dysfunction -hold digoxin * Afib -restart digoxin every other day if rapid rates * CAD/stent -ASA/Lipitor Subjective: no complaint other than fatigue Objective: Vital Signs Temp Pulse Resp BP Pulse Ox 36.4 C 76 24 H 119/86 H 88 L 11/03/16 12:00 11/03/16 14:00 11/03/16 14:00 11/03/16 14:00 11/03/16 14:00 Microbiology 10/31/16 02:20 Blood Panel (PCR) - Final Blood Staph Coagulase Negative Laboratory Results 11/01/16 04:30 11/03/16 09:29 11/02/16 11/03/16 11/04/16 05:59 05:59 05:59 Intake Total 1121 1050 Output Total 675 350 120 Balance 446 700 -120 PT 14.5 SEC (12.0-15.0) 10/30/16 19:36 INR 1.14 (0.83-1.16) 10/30/16 19:36 tele: NSR - Physical Exam Constitutional: no apparent distress, appears nourished, not in pain Cardiovascular: regular rate and rhythym, no murmur, rub, or gallop Respiratory: no respiratory distress, no rales or rhonchi, clear to auscultation Gastrointestinal: normoactive bowel sounds, soft, non-tender abdomen, no palpable masses Skin: no rashes or abrasions, no fluctuance, no induration Neurologic: AAOx3, sensation intact bilaterally Psychiatric: interacting appropriately, not anxious, not encephalopathic, thought process linear ICD10 Worksheet Patient Problems: Problems Problem Status Onset Congestive heart failure Acute Hyponatremia Acute Hypoxia Acute Palliative care encounter Acute Respiratory distress, acute Acute Congestive cardiomyopathy Active Acute exacerbation of congestive heart failure Acute Atrial fibrillation Acute Chronic Disease Mgmt/Transitional Care Acute Fluid overload Acute Hyponatremia Acute MRSA (methicillin resistant staph aureus) culture positive Acute 10/02/15 Pulmonary HTN Acute Renal insufficiency Acute
[2016-11-03 20:02] LABS: CALCULATED OXYGEN SATURATION 83 % (92-95)
[2016-11-03] MEDS ORDERED: FUROSEMIDE 20 MG/2 ML VIAL IVP ONE (20:30)
[2016-11-03 20:43] LABS: ANION GAP 6 mEq/L (8-16); CALCIUM 9.2 mg/dL (8.5-10.4); CARBON DIOXIDE 27 mEq/l (22-31); CHLORIDE 86 mEq/L (97-110); CREATININE 1.2 mg/dL (0.7-1.3); GLOMERULAR FILTRATION RATE 58; GLUCOSE 131 mg/dL (70-100)
[2016-11-03 21:01] LABS: SODIUM 119 mEq/L (134-144)
[2016-11-03] MEDS ORDERED: LORazepam 2 MG/ML INJ ONE (21:15)
--- NOTE | 2016-11-03 21:26 | PDINTPN ---
Wood Products Manufacturer Progress Note Assessment/Plan: Assessment/plan: 81 M with end-stage pulmonary hypertension with cor pulmonale admitted 10/31 with acute on chronic hyponatremia. He has been counselled to enter hospice on numerous times since at least 04/2016, but has adamantly declined, including on a recent admission at [facility] where aggressive diuresis was unsuccessful in diminishing his excessive oxygen requirement. 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 * Hypoxemia- worsening situation with sats in the low 70s despite max vapotherm plus NRB and subsequently bipap. With his at the bedside, I explained that he is very unlikely to survive the process of intubation due to hemodynamic instability, and even if he should survive, there was very little if any chance he could liberate from the vent. They both agreed that NO INTUBATION in addition to his limited DNR was the appropriate course of action. He was given 1 then 2 mg MSO4, followed by 1 mg Ativan for sats in the 60s on vapotherm and NRB (his preference). I also offered full withdrawal of support including oxygen , but they were not yet ready for that change. I explained that this is very likely a terminal situation. Both the p-atient and his were calm and understanding of his bleak situation. * Pulmonary hypertension- this is multifactorial resulting from his vague ILD and untreated FERN. He has been evaluated at who reluctantly tried an ERA in , but that resulted in worsening pulmonary edema and hypoxemia. He remains on Revatio (PDE inhibitor) which he said he has been taking for about 5 years. I agree with that there is no role for more advanced PH therapy such as prostaglandin analogues, endothelin antagonists, guanylate cyclase stimulators, or other PDEs. His prognosis is extremely poor from this perspective, and I dont anticipate he will survive the night. * Hyponatremia- as noted earlier today * Bigeminy- no changes at the moment * Dig toxicity- Maintaining a slow rhythm. Discussed with Dr. Leblanc- if his rate starts to rise will resume digoxin at half dose, but today it remains the same with a normal Dig level. * FERN- currently untreated * DNR- he is now a full DNR and comfort care Subjective: CTSP urgently for refractory hypoxemia Objective: Vital Signs Temp Pulse Resp BP Pulse Ox 36.4 C 78 21 H 100/55 L 86 L 11/03/16 16:00 11/03/16 18:00 11/03/16 18:00 11/03/16 18:00 11/03/16 18:00 Laboratory Results 11/01/16 04:30 11/03/16 20:15 11/02/16 11/03/16 11/04/16 05:59 05:59 05:59 Intake Total 1121 1050 750 Output Total 675 350 220 Balance 446 700 530 PT 14.5 SEC (12.0-15.0) 10/30/16 19:36 INR 1.14 (0.83-1.16) 10/30/16 19:36 Physical Exam - Physical Exam General Appearance: alert, severe distress EENT: PERRL/EOMI Neck: supple Respiratory: lungs clear, normal breath sounds, respiratory distress, accessory muscle use, decreased breath sounds, No crackles, No rales, No rhonchi, No stridor, No wheezing Cardiac/Chest: regular rate, rhythm, JVD, No edema Abdomen: non-tender, soft, No distended Skin: warm/dry, cyanosis (cassie-oral) Lymphatic: no adenopathy Extremities: No pedal edema Neuro/Psych: alert, oriented x 3 (surprisingly alert despite his dire circumstance) ICD10 Worksheet Patient Problems: Problems Problem Status Onset Congestive heart failure Acute Hyponatremia Acute Hypoxia Acute Palliative care encounter Acute Respiratory distress, acute Acute Congestive cardiomyopathy Active Acute exacerbation of congestive heart failure Acute Atrial fibrillation Acute Chronic Disease Mgmt/Transitional Care Acute Fluid overload Acute Hyponatremia Acute MRSA (methicillin resistant staph aureus) culture positive Acute 10/02/15 Pulmonary HTN Acute Renal insufficiency Acute
[2016-11-03] MEDS ORDERED: LORazepam 2 MG/ML INJ IVP ONE (22:00)
[2016-11-03] MEDS: ATORVASTATIN CALCIUM 20 MG TAB PO SCH (22:03)
[2016-11-03] MEDS: ASPIRIN 81 MG CHEWABLE TAB PO SCH (22:03)
[2016-11-03 23:28] VITALS: PULSE 76; RESP 24; O2SAT 83
[2016-11-03 23:38] VITALS: BP 130/49
== END 2016-11-03 23:00 | disposition expired | DRG 643 ==
LOC: EDUNIT# → OBSVTOIN 20:51 → F2N 10-31 00:58
PROVIDERS: ADMIT Hospitalist; ATTEND Hospitalist
PROC: 02HV33Z Insertion of Infusion Device into Superior Vena Cava, Percutaneous Approach (ICD-10-PCS; principal; 2016-10-31)
DX: E22.2 Syndrome of inappropriate secretion of antidiuretic hormone (principal); J96.21 Acute and chronic respiratory failure with hypoxia; I27.2 Other secondary pulmonary hypertension; I50.9 Heart failure, unspecified; T46.0X1A Poisoning by cardiac-stimulant glycosides and drugs of similar action, accidental (unintentional), initial encounter; E87.5 Hyperkalemia; I25.10 Atherosclerotic heart disease of native coronary artery without angina pectoris; J84.10 Pulmonary fibrosis, unspecified; I48.2 Chronic atrial fibrillation; I49.3 Ventricular premature depolarization; R00.8 Other abnormalities of heart beat; E78.5 Hyperlipidemia, unspecified; I11.0 Hypertensive heart disease with heart failure; K21.9 Gastro-esophageal reflux disease without esophagitis; Z95.5 Presence of coronary angioplasty implant and graft; Z85.118 Personal history of other malignant neoplasm of bronchus and lung; Z90.2 Acquired absence of lung [part of]; Z79.82 Long term (current) use of aspirin; Z66 Do not resuscitate
CPT/HCPCS: 97161-GP; 97166-GO; 97530-GP; C1751; G8978-GP-CK; G8979-GP-CJ; G8987-GO-CJ; G8988-GO-CI; J0834; J1650; J2060; J3370